=== PATIENT | male | born 1950 | race Caucasian/White ===

== ENCOUNTER 2023-05-05 09:39 | Outpatient (AMB) | payer BC, MEDICARE, SELFPAY ==
[2023-05-05 09:42] VITALS: BP 120/78; PULSE 73; O2SAT 96; BMI 32.1
--- NOTE | 2023-05-05 09:42 | A.OFFPC_ITS ---
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 Patient has psoriasis, would like a refill of Skyrizi Allergies No Known Allergies Allergy (Verified 05/05/23 09:49) Medication List - Last Reconciled 05/05/23 by Maurice Dodson MD cholecalciferol (vitamin D3) 125 mcg PO DAILY lisinopril 10 mg PO DAILY gg-na-lxxfk-lutein-herbal 293 120 mcg-150 mcg -50 mg (Alive Men's 50 Plus Multivitamin) tabs PO risankizumab-rzaa (Skyrizi) 150 mg subcut Q12W rosuvastatin 20 mg PO DAILY tamsulosin 0.4 mg PO DAILY terbinafine HCl 250 mg PO DAILY Tobacco use date assessed: 05/05/23 Fall risk assessment: No Falls in past year Last assessed Fall Risk: 05/05/23 Dental Screening Dental Screen Date: 05/05/23 Did you have a dental visit in the last 12 months?: Yes Did you have a dental problem in the last 6 months where you did not have access to dental care?: No Was dental information given to patient?: Patient has dentist HPI HEALTHCARE FACILITY ADMINISTRATOR/ Medications HPI Details New patient Prior PCP:? Dr Levon Rodriguez in [place] Last office visit/CPE: May Acute issue(s): PMHx: HTN, HLD, Psoriasis, urinary hesitancy SurgHx: vasectomy FHx: Dad: Colon CA. Mom: DVT age 97. SocHx: Nonsmoker, EtOH Occassional 1 per week. No drugs Colonoscopy 3 yrs ago and had polyps. f/u in 5 yrs PFSH Medical History (Updated 05/05/23 @ 10:49 by Maurice Dodson MD) Psoriasis Family History (Updated 05/05/23 @ 10:11 by Gisela Hinton CMA) Mother Blood clotting disorder Social History Housing: Apartment Patient Tobacco Use Status: Former Tobacco user Tobacco use type: Cigar e-Cigarette/Vaping Use: Never Used service: No Current occupational status: retired Cognitive needs: No Hearing needs: No Vision needs: Yes (Prescription glasses) Questionnaire PHQ-9 Over the last 2 weeks, how often have you been bothered by any of the following problems? 1. Little interest or pleasure in doing things: not at all 2. Feeling down, depressed, or hopeless: not at all 3. Trouble falling or staying asleep, or sleeping too much: several days 4. Feeling tired or having little energy: several days 5. Poor appetite or overeating: not at all 6. Feeling bad about yourself - or that you are a failure or have let yourself or your family down: not at all 7. Trouble concentrating on things, such as reading the newspaper or watching television: not at all 8. Moving or speaking so slowly that other people could have noticed. Or the opposite - being so fidgety or restless that you have been moving around a lot more than usual: not at all 9. Thoughts that you would be better off or of hurting yourself in some way: not at all Total score: 2 Source: Developed by Drs. Dennis Shane, Natalia Mcelroy, Cecil Phillips and colleagues, with an educational marley from [employer]. Thrive Questionnaire I am a: Patient What is your living situation today?: I have a steady place to live Within the past 12 months, did the food you bought not last and you didn't have the money to get more?: Never true Within the past 12 months, did you worry whether your food would run out before you got money to buy more?: Never true Do you have trouble paying for medicines?: No Do you have trouble getting transportation to medical appointments?: No Do you have trouble paying your heating and electricity bill?: No Do you have trouble taking care of your child, family member or friend?: No Do you have trouble with day-to-day activities such as bathing, preparing meals, shopping, managing finances, etc.?: No Are you currently unemployed and looking for a job?: No Are you interested in more education?: No AUDIT C Alcohol Use Questionnaire (AUDIT-C) 1. How often do you have a drink containing alcohol?: Monthly or less 2. How many drinks containing alcohol do you have on a typical day when you are drinking?: 1 or 2 3. How often do you have six or more drinks on one occasion?: Never Total Score: 1 IAIN-7 AMB Questionnaire IAIN-7 Feeling nervous, anxious, or on edge: 1 = Several days Not being able to stop or control worryin = Not at all Worrying too much about different things: 1 = Several days Trouble relaxin = Not at all Being so restless that it is hard to sit still: 0 = Not at all Becoming easily annoyed or irritable: 0 = Not at all Feeling afraid as if something awful might happen: 0 = Not at all Total IAIN-7 score (0-4 normal; 5-9 mild; 10-14 moderate; 15-21 severe): 2 Source: Developed by Drs. Dennis Shane, Natalia Mcelroy, Cecil Phillips and colleagues, with an educational marley from [employer]. Physical exam (Primary Care) Vital Signs: Last Vital Signs Pulse 73 05/05/23 09:42 BP 120/78 05/05/23 09:42 Pulse Ox 96 05/05/23 09:42 BMI result Body Mass Index 32.1 Tobacco/Smoking Status: Tobacco use Status Tobacco use date assessed 05/05/23 05/05/23 10:13 Patient Tobacco Use Status Former Tobacco user 05/05/23 10:13 Tobacco use type Cigar 05/05/23 10:13 e-Cigarette/Vaping Use Never Used 05/05/23 10:13 PHQ-9: PHQ-9 Score PHQ-9: Total score 2 05/05/23 10:24 Assessment and Plan Assessment & Plan (1) Essential hypertension: Code(s): I10 - Essential (primary) hypertension Plan: Blood pressure is controlled. Goal is less than 140/90 Continue current medications (2) Hyperlipidemia: Code(s): E78.5 - Hyperlipidemia, unspecified Plan: Lipids in May look well controlled except mildly low HDL He just started rosuvastatin more recently. Check labs Encouraged exercise (3) Psoriasis with arthropathy: Code(s): L40.50 - Arthropathic psoriasis, unspecified Plan: History of psoriasis and has been on Skyrisi. He noticed that when he began this medication, that joint pain disappeared as well Refilled his medication If problems arise, will refer to Rheumatology (4) Elevated PSA: Code(s): R97.20 - Elevated prostate specific antigen [PSA] Plan: PSA was 4.4 in December Repeating PSA level. If still elevated, will refer to Urology (5) Laboratory tests ordered as part of a complete physical exam (CPE): Code(s): Z00.00 - Encounter for general adult medical examination without abnormal findings Plan: Check labs Orders: Orders Complete Blood Count Auto Diff Today Z00.00 - Encounter for general adult medical examination without abnormal findings Lipid Panel Today Z00.00 - Encounter for general adult medical examination without abnormal findings TSH reflex Free T4 Today Z00.00 - Encounter for general adult medical examination without abnormal findings UA and rflx microscopic Today Z00.00 - Encounter for general adult medical examination without abnormal findings Vitamin D 25-OH Total Today E55.9 - Vitamin D deficiency, unspecified Comprehensive [place]. Panel Fast Today Z00.00 - Encounter for general adult medical examination without abnormal findings Microalbumin, Random (w Creat) Today I10 - Essential (primary) hypertension Prostate Specific Antigen Scr Today Z12.5 - Encounter for screening for malignant neoplasm of prostate Medications: New risankizumab-rzaa (Skyrizi) 150 mg subcut Q12W 1 mL 2RF 90 days Coding Level of Care Code New Pt Level 3 (38352) Diagnoses Essential hypertension I10 Hyperlipidemia E78.5 Psoriasis with arthropathy L40.50 Elevated PSA R97.20 Laboratory tests ordered as part of a complete physical exam (CPE) Z00.00
== END 2023-05-05 10:53 | disposition home or self-care (01) ==
PROVIDERS: PCP Family Medicine; Visit Provider Family Medicine
DX: I10 Essential (primary) hypertension (principal); E78.5 Hyperlipidemia, unspecified; L40.50 Arthropathic psoriasis, unspecified; R97.20 Elevated prostate specific antigen [PSA]; Z00.00 Encounter for general adult medical examination without abnormal findings
CPT/HCPCS: 99203

== ENCOUNTER 2023-06-10 08:53 | Outpatient (REF) | payer BC, MEDICARE, SELFPAY ==
[2023-06-10 11:24] LABS: Appearance Urine Clear; Color Urine Dark Yellow; Glucose Urine UA Negative (Negative); Leukocyte Esterase Urine Negative (Negative); Nitrite Urine Negative (Negative); Urine Blood Negative (Negative); Urine Ketones Negative (Negative); Urine Protein Negative (Neg-Trace)
[2023-06-10 11:30] LABS: MANUAL DIFF FLAG NO
[2023-06-10 11:41] LABS: Basophils Absolute Auto 0.1 X10*3/uL (0.0-0.2); Basophils Percent Auto 0.6 % (0-2); Eosinophils Absolute Auto 0.6 X10*3/uL (0.0-0.4); Eosinophils Percent Auto 6.4 % (0-4); Hematocrit 47.1 % (42.0-52.0); Hemoglobin 15.5 g/dl (14.0-18.0); Imm Gran Abs Auto 0.03 X10*3/uL (0.00-0.03); Imm Gran Pct Auto 0.3 % (0.0-0.4); Lymphocytes Absolute Auto 2.4 X10*3/uL (1.2-4.9); Lymphocytes Percent Auto 23.7 % (20-40); Mean Corpuscular HGB Conc 32.9 g/dl (31.0-36.0); Mean Corpuscular Hemoglobin 29.4 pg (27.0-33.0); Mean Corpuscular Volume 89.4 fL (80.0-98.0); Mean Platelet Volume 10.8 fL (9.4-12.4); Monocytes Absolute Auto 0.7 X10*3/uL (0.1-1.2); Monocytes Percent Auto 6.7 % (2-11); Neutrophils Absolute Auto 6.2 x10*3/uL (2.0-8.3); Neutrophils Percent Auto 62.3 % (45-73); Platelet Count 253 X10*3/uL (160-400); Red Blood Count 5.27 X10*6/uL (4.60-5.80); Red Cell Distribution Width 12.2 % (11.0-16.0)
[2023-06-10 12:11] LABS: Alanine Aminotransferase 17 U/L (0-40); Albumin Level 4.2 g/dL (3.5-5.0); Alkaline Phosphatase 27 U/L (39-117); Anion Gap 13 (12-20); Aspartate Amino Transferase 19 U/L (5-37); Bilirubin Total 0.5 mg/dL (0.0-1.0); Blood Urea Nitrogen 12 mg/dL (9-16); Calcium 9.7 mg/dL (8.4-10.2); Carbon Dioxide 27 mmol/L (22-29); Chloride 104 mmol/L (96-108); Cholesterol 113 mg/dL (<200); Estimated Glomerular Filt Rate > 60; Glucose Fasting 114 mg/dL (60-99); HDL Cholesterol 39 mg/dL (>40); LDL Cholesterol Calculated 46 mg/dL (<100); Sodium 140 mmol/L (135-145); Triglycerides 142 mg/dL (<150)
[2023-06-10 12:18] LABS: Prostate Specific Antigen Scr 3.57 ng/mL (<0.05-4.0)
[2023-06-10 12:29] LABS: TSH reflex Free T4 1.04 uIU/mL (0.32-4.0); Vitamin D 25-OH Total 103.1 ng/mL (>30)
[2023-06-10 12:34] LABS: Creatinine Urine 200.88 mg/dL; Microalbum/Creatinine Ratio Ur 6.4 ug/mg cr (<30)
== END 2023-06-10 08:54 | disposition home or self-care (01) ==
LOC: HO.WFDLDS 08:53
PROVIDERS: Visit Provider Family Medicine
DX: Z00.00 Encounter for general adult medical examination without abnormal findings (principal); Z12.5 Encounter for screening for malignant neoplasm of prostate; E55.9 Vitamin D deficiency, unspecified; I10 Essential (primary) hypertension
CPT/HCPCS: 36415; 80053; 80061; 81003; 82043; 82306; 82570; 84153; 84443; 85025

== ENCOUNTER 2023-06-24 10:44 | Outpatient (AMB) | payer BC, MEDICARE, SELFPAY ==
[2023-06-24 10:52] VITALS: BP 128/74; PULSE 72; O2SAT 96; BMI 32.5
--- NOTE | 2023-06-24 10:52 | MHC.PC.OV ---
Vital Signs 06/24/23 10:52 Height 5 ft 8 in Weight 214 lb BMI 32.5 BP 128/74 Blood Pressure Location Lt brachial Position Sitting Pulse 72 Pulse Source Pulse Oximeter Pulse Oximetry (%) 96 Oxygen Delivery Method Room Air Intake Visit Reasons: Extended exam with f/u labs and health maint. Intake Note: Patient is here for extended exam, with follow up labs and health maintenance. Allergies No Known Allergies Allergy (Verified 06/24/23 10:55) Tobacco use date assessed: 06/24/23 Fall risk assessment: No Falls in past year Last assessed Fall Risk: 06/24/23 HPI Extended exam with f/u labs and health maint. HPI Details 72 y/o male presents for a CPE with f/u labs and health maintenance. Labs were drawn 06/10/23. Reviewed labs with pt. Elevated fasting glucose of 114. Pt notes he has a hx of pre-diabetes and had been on metformin before. Triglycerides 142. TC 113. LDL 46. HDL low at 39. He is on rosuvastatin 20mg daily. COUNT INCLUDES [facility] Medical History (Updated 06/24/23 @ 12:06 by Yadiel Marques) Psoriasis Family History (Updated 05/05/23 @ 10:11 by Gisela Hinton [facility]) Mother Blood clotting disorder Social History Housing: Apartment Patient Tobacco Use Status: Former Tobacco user Tobacco use type: Cigar e-Cigarette/Vaping Use: Never Used service: No Current occupational status: retired Cognitive needs: No Hearing needs: No Vision needs: Yes (Prescription glasses) Review of Systems Const Denies chills, Denies fatigue, Denies fever(s), Denies headache(s) and Denies weakness Eyes Denies change in vision ENT Denies dizziness, Denies headache(s), Denies hearing loss, Denies nasal congestion, Denies sinus pain, Denies sinus pressure and Denies sore throat Card Denies chest pain, Denies lightheadedness, Denies dyspnea and Denies other (palpitations) Resp Denies cough, Denies dyspnea and Denies wheezing GI Denies abdominal pain, Denies melena, Denies hematochezia, Denies change in bowel habits, Denies dyspepsia and Denies nausea Denies hematuria and Denies dysuria Musc Denies abnormal gait, Denies myalgias, Denies arthralgias, Denies numbness and Denies tingling Skin/Breast Denies rash, Denies unusual bruising and Denies wounds Neuro Denies abnormal gait, Denies dizziness, Denies headache(s), Denies memory loss, Denies numbness, Denies Sensory deficit (Neuro), Denies tingling and Denies weakness Psych Denies anxiety, Denies depression and Denies memory loss Endo Denies cold intolerance, Denies fatigue, Denies heat intolerance, Denies polydipsia and Denies polyuria Eric/Lymph Denies easy bleeding and Denies easy bruising Aller/Immun Denies wheezing Physical exam (Primary Care) Vital Signs: Last Vital Signs Pulse 72 06/24/23 10:52 BP 128/74 06/24/23 10:52 Pulse Ox 96 06/24/23 10:52 Oxygen Delivery Method Room Air 06/24/23 10:52 BMI result Body Mass Index 32.5 Tobacco/Smoking Status: Tobacco use Status Tobacco use date assessed 06/24/23 06/24/23 10:56 Patient Tobacco Use Status Former Tobacco user 06/24/23 10:56 Tobacco use type Cigar 06/24/23 10:56 e-Cigarette/Vaping Use Never Used 06/24/23 10:56 Const General: no acute distress, well developed, alert and awake Nutritional Appearance: well nourished Orientation/consciousness: patient oriented x3 HENMT Head: Yes normocephalic and Yes atraumatic Ears: hearing grossly normal bilaterally and TM's normal bilaterally General nose exam: Normal external nose present and Normal nares present Mouth: Normal oral and palatal mucosa present and moist mucous membranes Teeth and gingiva: dentition normal Throat: Yes posterior oropharynx normal Eyes General: appearance normal, both eyes and all related structures Pupils: Equal, round and reactive pupils present and Pupil accommodation reflex normal EOM: EOMs intact bilaterally Neck Neck: Yes normal visual inspection, Yes no lymphadenopathy and Yes trachea midline Thyroid: Thyroid normal Carotids: no bruits Lymphatic: no lymphadenopathy noted Chest Chest palpation & inspection: normal inspection of the chest Resp Effort & Inspection: normal respiratory effort Auscultation: clear to auscultation bilaterally Cardio Rate: regular rate Rhythm: regular rhythm Heart sounds: S1 normal heart sound present, S2 normal heart sound present, no gallops, no murmurs and no rubs Bruits: no abdominal aortic bruits and no carotid bruits GI Palpation (GI): No Abdominal aortic bruit present, Soft to palpation, nontender, No hepatosplenomegaly present and No Rebound tenderness present Auscultation: normal bowel sounds General: Yes no CVA tenderness Back/Spine/Pelvis Back: no CVA tenderness Cervical Spine: cervical ROM normal and No Cervical spine tenderness Thoracic/Lumbar Spine: thoraco-lumbar ROM normal, No pain with thoraco-lumbar ROM, No thoracic spinal tenderness and No lumbar spinal tenderness Skin Lesions: no lesions Rashes: no rashes Trauma: no lacerations or abrasions Wounds: no wounds Nails: normal Neuro General: patient oriented x3 Cranial nerves: Yes Equal, round and reactive pupils present Cognition (Neuro): normal cognition Gait exam (Neuro): Normal gait present Motor exam (neuro): 5/5 motor strength present throughout Sensory Exam: No Sensory deficit (Neuro) Deep tendon reflexes (DTR's): Right patellar reflex intensity grade: 2+ and Left patellar reflex intensity grade: 2+ Extrem General: Yes normal to inspection and No edema Psych Appearance: grossly normal Affect: normal affect Attitude: cooperative Thought process: Normal thought process present Assessment and Plan Assessment & Plan (1) Adult general medical exam: Code(s): Z00.00 - Encounter for general adult medical examination without abnormal findings Plan: 72-year-old?male?presents?for?complete?physical?exam Encouraged?healthy?diet?with?active?lifestyle?and?plenty?of?exercise (2) Hyperlipidemia: Code(s): E78.5 - Hyperlipidemia, unspecified Plan: Lipids?controlled?with?rosuvastatin. Low?HDL?and?I?encouraged?exercise (3) Essential hypertension: Code(s): I10 - Essential (primary) hypertension Plan: Blood?pressure?128/74 Goal?less?than?140/90 Continue?current?medications (4) Diabetes: Code(s): E11.9 - Type 2 diabetes mellitus without complications Plan: Check?A1c (5) Screening for prostate cancer: Code(s): Z12.5 - Encounter for screening for malignant neoplasm of prostate Plan: PSA?was?within?normal?limit Orders: Orders Hemoglobin A1c Today E11.9 - Type 2 diabetes mellitus without complications, R73.01 - Impaired fasting glucose Comprehensive [place]. Panel Fast Today E11.9 - Type 2 diabetes mellitus without complications, Z00.00 - Encounter for general adult medical examination without abnormal findings Microalbumin, Random (w Creat) Today E11.9 - Type 2 diabetes mellitus without complications, I10 - Essential (primary) hypertension Lipid Panel Today E78.5 - Hyperlipidemia, unspecified, Z00.00 - Encounter for general adult medical examination without abnormal findings Medications: New metformin 1,000 mg PO DAILY 90 tabs 3RF 90 days Coding Level of Care Code Est Pt Level 4 (72078) Diagnoses Adult general medical exam Z00.00 Hyperlipidemia E78.5 Essential hypertension I10 Diabetes E11.9 Screening for prostate cancer Z12.5
== END 2023-06-24 12:09 | disposition home or self-care (01) ==
PROVIDERS: PCP Family Medicine; Visit Provider Family Medicine
DX: Z00.00 Encounter for general adult medical examination without abnormal findings (principal); E78.5 Hyperlipidemia, unspecified; I10 Essential (primary) hypertension; E11.9 Type 2 diabetes mellitus without complications; Z12.5 Encounter for screening for malignant neoplasm of prostate
CPT/HCPCS: 99214

== ENCOUNTER 2023-08-02 09:12 | Outpatient (REF) | payer BC, MEDICARE, SELFPAY ==
[2023-08-02 11:37] LABS: Estimated Average Glucose 120 mg/dL; Hemoglobin A1c % 5.8 % (<6.0)
[2023-08-02 11:49] LABS: Alanine Aminotransferase 17 U/L (0-40); Albumin Level 4.3 g/dL (3.5-5.0); Alkaline Phosphatase 29 U/L (39-117); Anion Gap 15 (12-20); Aspartate Amino Transferase 18 U/L (5-37); Bilirubin Total 0.5 mg/dL (0.0-1.0); Blood Urea Nitrogen 10 mg/dL (9-16); Calcium 9.7 mg/dL (8.4-10.2); Carbon Dioxide 27 mmol/L (22-29); Chloride 105 mmol/L (96-108); Cholesterol 123 mg/dL (<200); Estimated Glomerular Filt Rate > 60; Glucose Fasting 123 mg/dL (60-99); HDL Cholesterol 46 mg/dL (>40); LDL Cholesterol Calculated 51 mg/dL (<100); Potassium 4.3 mmol/L (3.3-5.1); Sodium 143 mmol/L (135-145); Total Protein 7.2 g/dL (6.5-8.0); Triglycerides 130 mg/dL (<150)
[2023-08-02 12:15] LABS: Creatinine Urine 188.05 mg/dL; Microalbum/Creatinine Ratio Ur 7.4 ug/mg cr (<30)
== END 2023-08-02 09:13 | disposition home or self-care (01) ==
LOC: HO.WFDLDS 09:12
PROVIDERS: Visit Provider Family Medicine
DX: Z00.00 Encounter for general adult medical examination without abnormal findings (principal); I10 Essential (primary) hypertension; E78.5 Hyperlipidemia, unspecified; E11.9 Type 2 diabetes mellitus without complications
CPT/HCPCS: 36415; 80053; 80061; 82043; 82570; 83036

== ENCOUNTER 2023-08-17 16:36 | Outpatient (AMB) | payer BC, MEDICARE, SELFPAY ==
--- NOTE | 2023-08-17 16:27 | MHC.PC.OV ---
Intake Visit Reasons: f/u elevated fasting glucose Intake Note: Patient is following up on elevated fasting glucose. He wants to talk about the Metformin, he feels dizzy when taking it and some diarrhea when taking it. Allergies No Known Allergies Allergy (Verified 08/17/23 16:30) Tobacco use date assessed: 06/24/23 Fall risk assessment: No Falls in past year Last assessed Fall Risk: 08/17/23 HPI f/u elevated fasting glucose HPI Details 73 y/o male presents to review A1c and fasting blood sugar. Pt revealed last office visit he had been on metformin which he had forgotten to mention. Labs were drawn 08/02/23. Reviewed labs with pt. Elevated fasting glucose of 123 and A1c 5.8%. Pt reports dizziness/diarrhea on metformin 1000mg daily. Triglycerides 130. TC 123. LDL 51. HDL 46. He is on rosuvastatin 20mg daily. PFSH Medical History Psoriasis Family History Mother Blood clotting disorder Social History Housing: Apartment Patient Tobacco Use Status: Former Tobacco user Tobacco use type: Cigar e-Cigarette/Vaping Use: Never Used service: No Current occupational status: retired Cognitive needs: No Hearing needs: No Vision needs: Yes (Prescription glasses) Review of Systems Const Denies chills, Denies fatigue, Denies fever(s), Denies headache(s) and Denies weakness ENT Denies dizziness and Denies headache(s) Card Denies dyspnea Resp Denies cough, Denies dyspnea, Denies wheezing and Denies other (shortness of breath) Musc Denies numbness and Denies tingling Neuro Denies dizziness, Denies headache(s), Denies numbness, Denies tingling and Denies weakness Psych Denies anxiety and Denies depression Endo Denies fatigue Aller/Immun Denies wheezing Physical exam (Primary Care) Tobacco/Smoking Status: Tobacco use Status Tobacco use date assessed 06/24/23 08/17/23 16:35 Patient Tobacco Use Status Former Tobacco user 08/17/23 16:35 Tobacco use type Cigar 08/17/23 16:35 e-Cigarette/Vaping Use Never Used 08/17/23 16:35 Telehealth Telehealth Location of provider rendering services: practice address Location of patient: address on file Patient Identification confirmed using: Name, : Yes Telehealth method: voice only Patient verbally consented to treatment: Yes Patient verbally consented to billing insurance company: Yes Patient informed of any privacy concerns related to visit: No Minutes spent on Phone/Video with Pt.: 6 Assessment and Plan Assessment & Plan (1) Diabetes: Code(s): E11.9 - Type 2 diabetes mellitus without complications Plan: Patient's?A1c?is?5.8%?which?is?good?control.??Goal?is?less?than?7.0% However,?patient?is?getting?some?adverse?effects?from?metformin?and?he?has?on?a?fairly?high?dose. He?would?like?to?try?Trulicity. Will?have?him?reduce?metformin?to?500?mg?daily?and?start?Trulicity. (2) Hyperlipidemia: Code(s): E78.5 - Hyperlipidemia, unspecified Plan: Lipids?are?improved?and?at?goal. Continue?rosuvastatin Medications: New dulaglutide (Trulicity) 0.75 mg (0.5 mL) subcut QWEEK 2 mL 2RF 28 days Changed From metformin 1,000 mg PO DAILY 90 days 90 tabs 3RF To metformin 500 mg (1/2 x 1,000 mg) PO DAILY 45 tabs 3RF 90 days Coding Level of Care Code Tele Est Pt Level 2 (46925) Diagnoses Diabetes E11.9 Hyperlipidemia E78.5
== END 2023-08-17 16:45 | disposition home or self-care (01) ==
LOC: HO.HMGFM 16:36
PROVIDERS: PCP Family Medicine; Visit Provider Family Medicine
DX: E11.9 Type 2 diabetes mellitus without complications (principal); E78.5 Hyperlipidemia, unspecified
CPT/HCPCS: 99441

== ENCOUNTER 2023-11-21 08:15 | Outpatient (AMB) | payer BC, MEDICARE, SELFPAY ==
--- NOTE | 2023-11-21 08:18 | MHC.PC.OV ---
Vital Signs 11/21/23 08:19 Height 5 ft 8 in Weight 220 lb BMI 33.4 BP 100/58 L Blood Pressure Location Rt brachial Position Sitting Respiration 12 Pulse 72 Pulse Source Pulse Oximeter Pulse Oximetry (%) 99 Oxygen Delivery Method Room Air Intake Visit Reasons: f/u diabetes and HTN - see comment Intake Note: Patient is here to follow up for diabetic care and hypertension. Patient reports he has no side effects from the trulicity. 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 Accompanied by: Self / Same As Patient Allergies No Known Allergies Allergy (Verified 11/21/23 08:28) Medication List - Last Reconciled 11/21/23 by Maurice Dodson MD dulaglutide (Trulicity) 0.75 mg (0.5 mL) subcut QWEEK 28 days lisinopril 10 mg PO DAILY 90 days metformin 500 mg (1/2 x 1,000 mg) PO DAILY 90 days fx-vz-tlrmb-lutein-herbal 293 120 mcg-150 mcg -50 mg (Alive Men's 50 Plus Multivitamin) tabs PO rosuvastatin 20 mg PO DAILY 90 days tamsulosin 0.4 mg PO DAILY 90 days Tobacco use date assessed: 06/24/23 Dental Screening Dental Screen Date: 05/05/23 HPI f/u diabetes and HTN - see comment HPI Details 73 y/o male presents to f/u diabetes and hypertension. A1c today 11/21/23 6.4%. He is tolerating his medication regimen well. He is on Trulicity 0.75mg, metformin 500mg daily. [facility] Medical History Psoriasis Surgical History History of vasectomy Family History Mother Blood clotting disorder Social History (Updated 11/21/23 @ 08:40 by Christina Lock CMA) Household Members: None Housing: Apartment Are you a primary administrator health care facility to a significant other at home: No Do you presently have visiting nurse or other home services: No 75 years or older and lives alone: No Alcohol intake: current Alcohol intake frequency: holidays/special occasions only Patient Tobacco Use Status: Former Tobacco user Tobacco use type: Cigar e-Cigarette/Vaping Use: Never Used service: No Current occupational status: retired Sexual orientation: Unable to collect Gender identity: Unable to collect Cognitive needs: No Hearing needs: No Vision needs: Yes (Prescription glasses) Questionnaire PHQ-9 Over the last 2 weeks, how often have you been bothered by any of the following problems? 1. Little interest or pleasure in doing things: not at all 2. Feeling down, depressed, or hopeless: not at all 3. Trouble falling or staying asleep, or sleeping too much: not at all 4. Feeling tired or having little energy: not at all 5. Poor appetite or overeating: not at all 6. Feeling bad about yourself - or that you are a failure or have let yourself or your family down: not at all 7. Trouble concentrating on things, such as reading the newspaper or watching television: not at all 8. Moving or speaking so slowly that other people could have noticed. Or the opposite - being so fidgety or restless that you have been moving around a lot more than usual: not at all 9. Thoughts that you would be better off or of hurting yourself in some way: not at all Total score: 0 Depression Screening Interpretation: Negative Depression Screening Done: Yes 55946 - PHQ-9 Billing: Yes Source: Developed by Drs. Dennis Shane, Natalia Mcelroy, Cecil Phillips and colleagues, with an educational marley from [employer]. Thrive Questionnaire Date Thrive assessed: 11/21/23 I am a: Patient What is your living situation today?: I have a steady place to live Within the past 12 months, did the food you bought not last and you didn't have the money to get more?: Never true Within the past 12 months, did you worry whether your food would run out before you got money to buy more?: Never true Do you have trouble paying for medicines?: No Do you have trouble getting transportation to medical appointments?: No Do you have trouble paying your heating and electricity bill?: No Do you have trouble taking care of your child, family member or friend?: No Do you have trouble with day-to-day activities such as bathing, preparing meals, shopping, managing finances, etc.?: No Are you currently unemployed and looking for a job?: No Are you interested in more education?: No Please select the resources that you would like help with: None Currently or been in a relationship where the following occur: no concerns reported THRIVE Score: 0 AUDIT C Alcohol Use Questionnaire (AUDIT-C) 1. How often do you have a drink containing alcohol?: Monthly or less 2. How many drinks containing alcohol do you have on a typical day when you are drinking?: 1 or 2 3. How often do you have six or more drinks on one occasion?: Never Total Score: 1 IAIN-7 AMB Questionnaire IAIN-7 Date IAIN - 7 assessed: 11/21/23 Feeling nervous, anxious, or on edge: 0 = Not at all Not being able to stop or control worryin = Not at all Worrying too much about different things: 0 = Not at all Trouble relaxin = Not at all Being so restless that it is hard to sit still: 0 = Not at all Becoming easily annoyed or irritable: 0 = Not at all Feeling afraid as if something awful might happen: 0 = Not at all Total IAIN-7 score (0-4 normal; 5-9 mild; 10-14 moderate; 15-21 severe): 0 Source: Developed by Drs. Dennis Shane, Natalia Mcelroy, Cecil Phillips and colleagues, with an educational marley from [employer]. IAIN-7 Assessment Billing IAIN-7 Assessment Tool: IAIN-7 Assessment 10349 Review of Systems Const Denies chills, Denies fatigue, Denies fever(s), Denies headache(s) and Denies weakness ENT Denies dizziness and Denies headache(s) Card Denies dyspnea Resp Denies cough, Denies dyspnea, Denies wheezing and Denies other (shortness of breath) Musc Denies numbness and Denies tingling Neuro Denies dizziness, Denies headache(s), Denies numbness, Denies tingling and Denies weakness Psych Denies anxiety and Denies depression Endo Denies fatigue Aller/Immun Denies wheezing Physical exam (Primary Care) Vital Signs: Last Vital Signs Pulse 72 11/21/23 08:19 Resp 12 11/21/23 08:19 BP 100/58 L 11/21/23 08:19 Pulse Ox 99 11/21/23 08:19 Oxygen Delivery Method Room Air 11/21/23 08:19 BMI result Body Mass Index 33.4 Tobacco/Smoking Status: Tobacco use Status Tobacco use date assessed 06/24/23 11/21/23 08:18 Patient Tobacco Use Status Former Tobacco user 11/21/23 08:40 Tobacco use type Cigar 11/21/23 08:40 e-Cigarette/Vaping Use Never Used 11/21/23 08:40 PHQ-9: PHQ-9 Score PHQ-9: Total score 0 11/21/23 08:38 Depression Screening Interpretation: Negative Thrive Assessment: Date of Thrive Assessment Date Thrive assessed 11/21/23 11/21/23 08:38 Currently or been in a relationship where the following occur: no concerns reported Const General: well developed; No acute distress Nutritional Appearance: well nourished Orientation/consciousness: patient oriented x3 HENMT Head: Yes normocephalic and Yes atraumatic Eyes General: appearance normal, both eyes and all related structures Pupils: Equal, round and reactive pupils present EOM: EOMs intact bilaterally Resp Effort & Inspection: normal respiratory effort Neuro General: patient oriented x3 and gait normal Cranial nerves: Yes Equal, round and reactive pupils present Psych Affect: normal affect Results AMB Hemoglobin A1c AMB Hemoglobin A1c 6.4 % Last Edit by Christina Lock CMA on 11/21/23 08:41 Results Reviewed Results Reviewed: Laboratory Last Values Hgb A1c (Clinic) 6.4 % (4.0-6.0) H 11/21/23 08:40 Assessment and Plan Assessment & Plan (1) Diabetes: Code(s): E11.9 - Type 2 diabetes mellitus without complications Plan: Controlled?on metformin?and?Trulicity.??Had?decreased?metformin?and?started?Trulicity?at?his?last?visit.??Patient?is?tolerating?this?regimen?well?and?is?controlled?but?would?like?to?discontinue?Trulicity?and?resume?old?metformin?dose?due?to?cost. He?will?go?back?to?metformin?1000?mg?daily If?he?is?having?any?trouble?with?this?we?can?resume?today's?regimen. Encouraged?him?to?see?an?eye?doctor?any?plans?to?make?an?appointment. (2) Essential hypertension: Code(s): I10 - Essential (primary) hypertension Plan: Blood?pressure?is?controlled.??Goal?is?less?than?140/90 Continue?current?medication Orders: Orders AMB Hemoglobin A1c Today E11.9 - Type 2 diabetes mellitus without complications Medications: Changed From metformin 500 mg (1/2 x 1,000 mg) PO DAILY 90 days 45 tabs 3RF To metformin 1,000 mg PO DAILY 90 days 90 tabs 3RF Discontinued dulaglutide (Trulicity) Discontinued Reason: Patient no longer taking 0.75 mg (0.5 mL) subcut QWEEK 28 days 2 mL 2RF Coding Level of Care Code Est Pt Level 3 (92109) Diagnoses Diabetes E11.9 Essential hypertension I10 Additional Codes IAIN-7 Assessment Billing - IAIN-7 Assessment Tool: IAIN-7 Assessment 45489 ([id number])
[2023-11-21 08:19] VITALS: BP 100/58; PULSE 72; RESP 12; O2SAT 99; BMI 33.4
== END 2023-11-21 08:58 | disposition home or self-care (01) ==
PROVIDERS: PCP Family Medicine; Visit Provider Family Medicine
DX: E11.9 Type 2 diabetes mellitus without complications (principal)
CPT/HCPCS: 83036; 99213

== ENCOUNTER 2024-05-28 08:31 | Outpatient (AMB) | payer BC, MEDICARE, SELFPAY ==
--- NOTE | 2024-05-28 08:47 | A.OFFPC_ITS ---
Vital Signs 05/28/24 08:52 Height 5 ft 8 in Weight 220 lb 6 oz BMI 33.5 BP 110/66 Blood Pressure Location Rt brachial Position Sitting Respiration 16 Pulse 77 Pulse Source Pulse Oximeter Temp 97.9 F Temp Source Oral Pulse Oximetry (%) 94 Oxygen Delivery Method Room Air Intake Visit Reasons: PE/ 3 mo f/u - see comments Intake Note: PE Allergies No Known Allergies Allergy (Verified 05/28/24 08:51) Medication List - Last Reconciled 05/28/24 by Maurice Dodson MD lisinopril 10 mg PO DAILY 90 days metformin 1,000 mg PO DAILY 90 days sv-ma-ehgpu-lutein-herbal 293 120 mcg-150 mcg -50 mg (Alive Men's 50 Plus Multivitamin) tabs PO rosuvastatin 20 mg PO DAILY 90 days tamsulosin 0.4 mg PO DAILY 90 days Tobacco use date assessed: 05/28/24 Fall risk assessment: No Falls in past year Last assessed Fall Risk: 05/28/24 Dental Screening Dental Screen Date: 05/28/24 Did you have a dental visit in the last 12 months?: Yes Did you have a dental problem in the last 6 months where you did not have access to dental care?: No Was dental information given to patient?: Patient has dentist HPI PE/ 3 mo f/u - see comments HPI Details 73 y/o male presents for a CPE with f/u labs and health maintenance. No recent labs to review. Last A1c 04/15 6.2%. He is on metformin 1000mg daily. Blood pressure today 110/66, 77p. He is on lisinopril 10mg daily. Follows his eye doctor regularly. HPI Comments History of Present Illness Details Documentation assistance for Maurice Dodson MD, was provided by Yadiel Marques, Gas Station Cashier on 05/28/2024 at 9:10 AM TORRI. I, Dr. Dodson, have read, observed, and verified documentation. [facility] Medical History Psoriasis Surgical History History of vasectomy Family History Mother Blood clotting disorder Social History (Updated 11/21/23 @ 08:40 by Christina Lock [facility]) Household Members: None Housing: Apartment Are you a primary customer care associate to a significant other at home: No Do you presently have visiting nurse or other home services: No 75 years or older and lives alone: No Alcohol intake: current Alcohol intake frequency: holidays/special occasions only Patient Tobacco Use Status: Current someday Tobacco user Tobacco use type: Cigar e-Cigarette/Vaping Use: Never Used service: No Current occupational status: retired Sexual orientation: Unable to collect Gender identity: Unable to collect Cognitive needs: No Hearing needs: No Vision needs: Yes (Prescription glasses) Questionnaire PHQ-9 Over the last 2 weeks, how often have you been bothered by any of the following problems? 1. Little interest or pleasure in doing things: not at all 2. Feeling down, depressed, or hopeless: several days 3. Trouble falling or staying asleep, or sleeping too much: not at all 4. Feeling tired or having little energy: not at all 5. Poor appetite or overeating: not at all 6. Feeling bad about yourself - or that you are a failure or have let yourself or your family down: not at all 7. Trouble concentrating on things, such as reading the newspaper or watching television: not at all 8. Moving or speaking so slowly that other people could have noticed. Or the opposite - being so fidgety or restless that you have been moving around a lot more than usual: not at all 9. Thoughts that you would be better off or of hurting yourself in some way: not at all Total score: 1 Depression Screening Interpretation: Negative Depression Screening Done: Yes 08419 - PHQ-9 Billing: Yes Source: Developed by Drs. Dennis Shane, Natalia Mcelroy, Cecil Phillips and colleagues, with an educational marley from [employer]. Thrive Questionnaire Date Thrive assessed: 05/28/24 I am a: Patient What is your living situation today?: I have a steady place to live Within the past 12 months, did the food you bought not last and you didn't have the money to get more?: Never true Within the past 12 months, did you worry whether your food would run out before you got money to buy more?: Never true Do you have trouble paying for medicines?: No Do you have trouble getting transportation to medical appointments?: No Do you have trouble paying your heating and electricity bill?: No Do you have trouble taking care of your child, family member or friend?: No Do you have trouble with day-to-day activities such as bathing, preparing meals, shopping, managing finances, etc.?: No Are you currently unemployed and looking for a job?: No Are you interested in more education?: No Please select the resources that you would like help with: None Currently or been in a relationship where the following occur: No concerns reported THRIVE Score: 0 AUDIT C Alcohol Use Questionnaire (AUDIT-C) 1. How often do you have a drink containing alcohol?: Monthly or less 2. How many drinks containing alcohol do you have on a typical day when you are drinking?: 1 or 2 3. How often do you have six or more drinks on one occasion?: Never Total Score: 1 IAIN-7 AMB Questionnaire IAIN-7 Date IAIN - 7 assessed: 05/28/24 Feeling nervous, anxious, or on edge: 0 = Not at all Not being able to stop or control worryin = Not at all Worrying too much about different things: 0 = Not at all Trouble relaxin = Not at all Being so restless that it is hard to sit still: 0 = Not at all Becoming easily annoyed or irritable: 1 = Several days Feeling afraid as if something awful might happen: 0 = Not at all Total IAIN-7 score (0-4 normal; 5-9 mild; 10-14 moderate; 15-21 severe): 1 Source: Developed by Drs. Dennis Shane, Natalia Mcelroy, Cecil Phillips and colleagues, with an educational marley from [employer]. IAIN-7 Assessment Billing IAIN-7 Assessment Tool: IAIN-7 Assessment 19144 Review of Systems Const Denies chills, Denies fatigue, Denies fever(s), Denies headache(s) and Denies weakness Eyes Denies change in vision ENT Denies dizziness, Denies headache(s), Denies hearing loss, Denies nasal congestion, Denies sinus pain, Denies sinus pressure and Denies sore throat Card Denies chest pain, Denies lightheadedness, Denies dyspnea and Denies other (palpitations) Resp Denies cough, Denies dyspnea and Denies wheezing GI Denies abdominal pain, Denies melena, Denies hematochezia, Denies change in bowel habits, Denies dyspepsia and Denies nausea Denies hematuria and Denies dysuria Musc Denies abnormal gait, Denies myalgias, Denies arthralgias, Denies numbness and Denies tingling Skin/Breast Denies rash, Denies unusual bruising and Denies wounds Neuro Denies abnormal gait, Denies dizziness, Denies headache(s), Denies memory loss, Denies numbness, Denies Sensory deficit (Neuro), Denies tingling and Denies weakness Psych Denies anxiety, Denies depression and Denies memory loss Endo Denies cold intolerance, Denies fatigue, Denies heat intolerance, Denies polydipsia and Denies polyuria Eric/Lymph Denies easy bleeding and Denies easy bruising Aller/Immun Denies wheezing Physical exam (Primary Care) Vital Signs: Last Vital Signs Temp 97.9 F 05/28/24 08:52 Pulse 77 05/28/24 08:52 Resp 16 05/28/24 08:52 BP 110/66 05/28/24 08:52 Pulse Ox 94 05/28/24 08:52 Oxygen Delivery Method Room Air 05/28/24 08:52 BMI result Body Mass Index 33.5 Tobacco/Smoking Status: Tobacco use Status Tobacco use date assessed 05/28/24 05/28/24 08:56 Patient Tobacco Use Status Current someday Tobacco 05/28/24 08:56 Tobacco use type Cigar 05/28/24 08:56 e-Cigarette/Vaping Use Never Used 05/28/24 08:56 PHQ-9: PHQ-9 Score PHQ-9: Total score 1 05/28/24 08:56 Depression Screening Interpretation: Negative Thrive Assessment: Date of Thrive Assessment Date Thrive assessed 05/28/24 05/28/24 08:56 Currently or been in a relationship where the following occur: No concerns reported Const General: no acute distress, well developed, alert and awake Nutritional Appearance: well nourished Orientation/consciousness: patient oriented x3 HENMT Head: Yes normocephalic and Yes atraumatic Ears: hearing grossly normal bilaterally and TM's normal bilaterally General nose exam: Normal external nose present and Normal nares present Mouth: Normal oral and palatal mucosa present and moist mucous membranes Teeth and gingiva: dentition normal Throat: Yes posterior oropharynx normal Eyes General: appearance normal, both eyes and all related structures Pupils: Equal, round and reactive pupils present and Pupil accommodation reflex normal EOM: EOMs intact bilaterally Neck Neck: Yes normal visual inspection, Yes no lymphadenopathy and Yes trachea midline Thyroid: Thyroid normal Carotids: no bruits Lymphatic: no lymphadenopathy noted Chest Chest palpation & inspection: normal inspection of the chest Resp Effort & Inspection: normal respiratory effort Auscultation: clear to auscultation bilaterally Cardio Rate: regular rate Rhythm: regular rhythm Heart sounds: S1 normal heart sound present, S2 normal heart sound present, no gallops, no murmurs and no rubs Bruits: no abdominal aortic bruits and no carotid bruits GI Palpation (GI): No Abdominal aortic bruit present, Soft to palpation, nontender, No hepatosplenomegaly present and No Rebound tenderness present Auscultation: normal bowel sounds General: Yes no CVA tenderness Back/Spine/Pelvis Back: no CVA tenderness Cervical Spine: cervical ROM normal and No Cervical spine tenderness Thoracic/Lumbar Spine: thoraco-lumbar ROM normal, No pain with thoraco-lumbar ROM, No thoracic spinal tenderness and No lumbar spinal tenderness Skin Lesions: no lesions Rashes: no rashes Trauma: no lacerations or abrasions Wounds: no wounds Nails: normal Neuro General: patient oriented x3 Cranial nerves: Yes Equal, round and reactive pupils present Cognition (Neuro): normal cognition Gait exam (Neuro): Normal gait present Motor exam (neuro): 5/5 motor strength present throughout Sensory Exam: No Sensory deficit (Neuro) Deep tendon reflexes (DTR's): Right patellar reflex intensity grade: 2+ and Left patellar reflex intensity grade: 2+ Extrem General: Yes normal to inspection and No edema Psych Appearance: grossly normal Affect: normal affect Attitude: cooperative Thought process: Normal thought process present Coding Level of Care Code Est Pt Level 3 (63749) Est Pt Prev Care >65y(98525) Diagnoses Adult general medical exam Z00.00 Diabetes E11.9 Essential hypertension I10 Hyperlipidemia E78.5 Screening for prostate cancer Z12.5 Screening for colon cancer Z12.11 Psoriasis with arthropathy L40.50 Additional Codes IAIN-7 Assessment Billing - IAIN-7 Assessment Tool: IAIN-7 Assessment 97406 ([id number]) Assessment & Plan Assessment & Plan (1) Adult general medical exam: Code(s): Z00.00 - Encounter for general adult medical examination without abnormal findings Category: Medical Plan: 73 y/o male presents for CPE Encouraged?healthy?diet?with?active?lifestyle?and?plenty?of?exercise (2) Diabetes: Code(s): E11.9 - Type 2 diabetes mellitus without complications Category: Medical Plan: Most?recent?A1c?in?April?was?6.2%. See?patient?is?scanned?paperwork?from?today's?date Good?control.??Goal?is?less?than?7.0% Continue?current?medication (3) Essential hypertension: Code(s): I10 - Essential (primary) hypertension Category: Medical Plan: Blood?pressure?is?well?controlled.??Goal?is?less?than?140/90 Continue?current?medication (4) Hyperlipidemia: Code(s): E78.5 - Hyperlipidemia, unspecified Category: Medical Plan: Check?lipids (5) Screening for prostate cancer: Code(s): Z12.5 - Encounter for screening for malignant neoplasm of prostate Category: Medical Plan: Due?for?PSA?testing-ordered (6) Screening for colon cancer: Code(s): Z12.11 - Encounter for screening for malignant neoplasm of colon Category: Medical Plan: Patient?had?recent FIT test. He?denies?any?prior?abnormal?colonoscopies. He?would?like?to?use?Cologuard?testing, beginning?next?year. 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 Checking?TB?and?starting?this?for?him?again?and?referring?him?to?Dermatology. Plan Patient?also?had?NILS?testing which?was?normal?for?bilateral?lower?extremities.??See scanned?documents?from?today's?date. Orders: Orders Prostate Specific Antigen Scr Today Z12.5 - Encounter for screening for malignant neoplasm of prostate TSH reflex Free T4 Today Z00.00 - Encounter for general adult medical examination without abnormal findings Comprehensive [place]. Panel Fast Today Z00.00 - Encounter for general adult medical examination without abnormal findings Complete Blood Count Auto Diff Today Z00.00 - Encounter for general adult medical examination without abnormal findings Lipid Panel Today Z00.00 - Encounter for general adult medical examination without abnormal findings Microalbumin, Random (w Creat) Today I10 - Essential (primary) hypertension UA and rflx microscopic Today Z00.00 - Encounter for general adult medical examination without abnormal findings T Spot TB Today Z11.1 - Encounter for screening for respiratory tuberculosis Referrals Dermatology Referral L40.50 - Arthropathic psoriasis, unspecified Medications: New apremilast (Otezla Starter) 1 ea PO PER PKG DIR 51 ea 0RF L40.50 - Arthropathic psoriasis, unspecified
[2024-05-28 08:52] VITALS: BP 110/66; PULSE 77; RESP 16; TEMP 36.6; O2SAT 94; BMI 33.5
== END 2024-05-28 09:27 | disposition home or self-care (01) ==
PROVIDERS: PCP Family Medicine; Visit Provider Family Medicine
DX: Z00.00 Encounter for general adult medical examination without abnormal findings (principal); L40.50 Arthropathic psoriasis, unspecified; E11.69 Type 2 diabetes mellitus with other specified complication; I10 Essential (primary) hypertension; E78.5 Hyperlipidemia, unspecified; Z12.5 Encounter for screening for malignant neoplasm of prostate; Z12.11 Encounter for screening for malignant neoplasm of colon

== ENCOUNTER → 2024-05-28 08:31 | Outpatient (BNVA) | payer BC, MEDICARE, SELFPAY | PROVIDERS: PCP Family Medicine; Visit Provider Family Medicine | DX: Z00.00 Encounter for general adult medical examination without abnormal findings (principal); E11.9 Type 2 diabetes mellitus without complications; I10 Essential (primary) hypertension; E78.5 Hyperlipidemia, unspecified; L40.50 Arthropathic psoriasis, unspecified; Z79.899 Other long term (current) drug therapy | CPT/HCPCS: 96127 ==

== ENCOUNTER 2024-06-19 08:46 | Outpatient (REF) | payer BC, MEDICARE, SELFPAY ==
[2024-06-19 11:57] LABS: Alanine Aminotransferase 22 U/L (0-40); Albumin Level 4.3 g/dL (3.5-5.0); Alkaline Phosphatase 29 U/L (39-117); Aspartate Amino Transferase 27 U/L (5-37); Bilirubin Direct 0.2 mg/dL (0.0-0.5); Bilirubin Total 0.5 mg/dL (0.0-1.0); Cholesterol 115 mg/dL (<200); HDL Cholesterol 45 mg/dL (>40); LDL Cholesterol Calculated 45 mg/dL (<100); Total Protein 6.9 g/dL (6.5-8.0); Triglycerides 125 mg/dL (<150)
[2024-06-19 12:01] LABS: Basophils Absolute Auto 0.1 X10*3/uL (0.0-0.2); Basophils Percent Auto 0.5 % (0-2); Eosinophils Absolute Auto 0.6 X10*3/uL (0.0-0.4); Eosinophils Percent Auto 6.3 % (0-4); Hematocrit 45.3 % (42.0-52.0); Hemoglobin 15.1 g/dl (14.0-18.0); Imm Gran Abs Auto 0.04 X10*3/uL (0.00-0.03); Imm Gran Pct Auto 0.4 % (0.0-0.4); Lymphocytes Percent Auto 19.3 % (20-40); MANUAL DIFF FLAG SCAN; Mean Corpuscular HGB Conc 33.3 g/dl (31.0-36.0); Mean Corpuscular Hemoglobin 29.6 pg (27.0-33.0); Mean Corpuscular Volume 88.8 fL (80.0-98.0); Mean Platelet Volume 10.8 fL (9.4-12.4); Monocytes Absolute Auto 0.6 X10*3/uL (0.1-1.2); Monocytes Percent Auto 5.9 % (2-11); Neutrophils Absolute Auto 6.9 x10*3/uL (2.0-8.3); Neutrophils Percent Auto 67.6 % (45-73); PLT CLUMP 1; Red Cell Distribution Width 12.3 % (11.0-16.0); SCAN SMEAR FLAG 1
[2024-06-19 12:02] LABS: Alanine Aminotransferase 21 U/L (0-40); Albumin Level 4.3 g/dL (3.5-5.0); Alkaline Phosphatase 46 U/L (39-117); Anion Gap 17 (12-20); Aspartate Amino Transferase 28 U/L (5-37); Bilirubin Total 0.5 mg/dL (0.0-1.0); Blood Urea Nitrogen 14 mg/dL (9-16); Calcium 9.7 mg/dL (8.4-10.2); Carbon Dioxide 26 mmol/L (22-29); Chloride 105 mmol/L (96-108); Cholesterol 117 mg/dL (<200); Estimated Glomerular Filt Rate > 60; Glucose Fasting 132 mg/dL (60-99); HDL Cholesterol 45 mg/dL (>40); LDL Cholesterol Calculated 47 mg/dL (<100); Potassium 4.1 mmol/L (3.3-5.1); Sodium 144 mmol/L (135-145); Total Protein 7.1 g/dL (6.5-8.0); Triglycerides 126 mg/dL (<150)
[2024-06-19 12:19] LABS: TSH reflex Free T4 1.49 uIU/mL (0.32-4.0)
[2024-06-19 12:27] LABS: Platelet Count 230 X10*3/uL (160-400); White Blood Count 10.2 X10*3/uL (4.8-10.8)
[2024-06-19 12:28] LABS: SLIDE REVIEW VERIFIED
[2024-06-20 09:10] LABS: HBc Num1 0.07 S/CO (0.00-0.79); HBsAGNum1 0.25 S/CO (0.00-0.99); Hepatitis B Core Antibody Nonreactive (Nonreactive); Hepatitis B Surface Antigen Negative (Negative); ~HepC Num1 0.06 S/CO (0.00-0.79); ~Hepatitis B Surface Antibody NONREACTIVE (Nonreactive); ~Hepatitis C Antibody Nonreactive (Nonreactive)
[2024-06-21 10:52] LABS: LDL Cholesterol Direct 52 mg/dL (<100)
[2024-06-22 05:04] LABS: TS Negative Control Passed; TS Panel A 0; TS Panel B 0; TS Positive Control Passed; TSpotTB Negative (Negative)
[2024-06-24 11:53] LABS: Thyroxine Binding Globulin 17.8 mcg/mL (12.7-25.1)
== END 2024-06-19 08:47 | disposition home or self-care (01) ==
LOC: HO.WFDLDS 08:46
PROVIDERS: Nurse Practitioner Gerontology; Visit Provider Family Medicine
DX: Z00.00 Encounter for general adult medical examination without abnormal findings (principal); Z12.5 Encounter for screening for malignant neoplasm of prostate; L40.0 Psoriasis vulgaris
CPT/HCPCS: 36415; 80053; 80061; 80076; 82248; 83721; 84153; 84442; 84443; 85025; 86481; 86704; 86706; 86803; 87340

== ENCOUNTER 2024-06-28 13:49 | Outpatient (AMB) | payer BC, MEDICARE, SELFPAY ==
--- NOTE | 2024-06-28 13:42 | A.OFFPC_ITS ---
Intake Visit Reasons: F/U Labs Intake Note: f/u labs Allergies No Known Allergies Allergy (Verified 06/28/24 13:42) Tobacco use date assessed: 05/28/24 Dental Screening Dental Screen Date: 05/28/24 HPI F/U Labs HPI Details 73 y/o male presents to review CPE-labs. Also checking T spot. Had started him on Otezla for psoriasis. Had referred him to Dermatology. Labs drawn 06/19/24. Reviewed labs with pt. Fasting glucose of 132. Triglycerides 125. TC 115. LDL direct 52. HDL 45. He is on rosuvastatin 20mg daily. PSA 5.20. Notes he had increased sexual activity before testing. TSH 1.49. HPI Comments History of Present Illness Details Documentation assistance for Maurice Dodson MD, was provided by Yadiel Marques, Trombone Slide Assembler on 06/28/2024 at 4:18 PM EST. I, Dr. Dodson, have read, observed, and verified documentation. PFSH Medical History Psoriasis Surgical History History of vasectomy Family History Mother Blood clotting disorder Social History (Updated 11/21/23 @ 08:40 by Christina Lock CMA) Household Members: None Housing: Apartment Are you a primary intensive care anaesthetist to a significant other at home: No Do you presently have visiting nurse or other home services: No 75 years or older and lives alone: No Alcohol intake: current Alcohol intake frequency: holidays/special occasions only Patient Tobacco Use Status: Current someday Tobacco user Tobacco use type: Cigar e-Cigarette/Vaping Use: Never Used service: No Current occupational status: retired Sexual orientation: Unable to collect Gender identity: Unable to collect Cognitive needs: No Hearing needs: No Vision needs: Yes (Prescription glasses) Questionnaire Thrive Questionnaire Date Thrive assessed: 05/28/24 IAIN-7 AMB Questionnaire IAIN-7 Date IAIN - 7 assessed: 05/28/24 Source: Developed by Drs. Dennis Shane, Natalia McelroyCecil and colleagues, with an educational marley from [employer]. Physical exam (Primary Care) Tobacco/Smoking Status: Tobacco use Status Tobacco use date assessed 05/28/24 06/28/24 13:43 Patient Tobacco Use Status Current someday Tobacco 06/28/24 13:43 Tobacco use type Cigar 06/28/24 13:43 e-Cigarette/Vaping Use Never Used 06/28/24 13:43 Thrive Assessment: Date of Thrive Assessment Date Thrive assessed 05/28/24 06/28/24 13:43 Telehealth Telehealth Telehealth Platform: Telephone Location of provider rendering services: practice address Location of patient: address on file Patient Identification confirmed using: Name, : Yes Telehealth method: voice only Patient verbally consented to treatment: Yes Patient verbally consented to billing insurance company: Yes Patient informed of any privacy concerns related to visit: Yes Minutes spent on Phone/Video with Pt.: 8 Coding Level of Care Code Tele Est Pt Level 2 (51127) Diagnoses Hyperlipidemia E78.5 Diabetes E11.9 Elevated PSA R97.20 Screening for tuberculosis Z11.1 Assessment & Plan Assessment & Plan (1) Hyperlipidemia: Code(s): E78.5 - Hyperlipidemia, unspecified Category: Medical Plan: Patient?is?on?rosuvastatin Lipid?panel?is?all?at?goal Continue?current?medication (2) Diabetes: Code(s): E11.9 - Type 2 diabetes mellitus without complications Category: Medical Plan: Encouraged?diet?low?in?sugars?and?starches Will?follow-up?with?him?in?3?months (3) Elevated PSA: Code(s): R97.20 - Elevated prostate specific antigen [PSA] Category: Medical Plan: Elevated?PSA?level?but?patient?says?he?had increased?sexual?activity?prior?to?testing Will?repeat?testing?prior?to?his?next?visit (4) Screening for tuberculosis: Code(s): Z11.1 - Encounter for screening for respiratory tuberculosis Category: Medical Plan: Patient?has?psoriasis?and?plan?was?to?start?medication?for?this?so?TB?testing?wa s?acquired?and?is?negative Orders: Orders Comprehensive [place]. Panel Fast Today E11.9 - Type 2 diabetes mellitus without complications, Z00.00 - Encounter for general adult medical examination without abnormal findings Hemoglobin A1c Today E11.9 - Type 2 diabetes mellitus without complications, R73.01 - Impaired fasting glucose Prostate Specific Antigen Scr Today R97.20 - Elevated prostate specific antigen [PSA], Z12.5 - Encounter for screening for malignant neoplasm of prostate Microalbumin, Random (w Creat) Today I10 - Essential (primary) hypertension
== END 2024-06-28 17:05 | disposition home or self-care (01) ==
LOC: HO.HMCFM 13:49
PROVIDERS: PCP Family Medicine; Visit Provider Family Medicine
DX: E78.5 Hyperlipidemia, unspecified (principal); E11.9 Type 2 diabetes mellitus without complications; R97.20 Elevated prostate specific antigen [PSA]; Z11.1 Encounter for screening for respiratory tuberculosis

== ENCOUNTER 2024-11-09 08:49 | Outpatient (REF) | payer BC, MEDICARE, SELFPAY ==
[2024-11-09 11:53] LABS: Estimated Average Glucose 128 mg/dL; Hemoglobin A1c % 6.1 % (<6.0); Total Hemoglobin (HGBA1C) 4226.8614 umol/L
[2024-11-09 11:59] LABS: Alanine Aminotransferase 33 U/L (0-40); Albumin Level 4.4 g/dL (3.5-5.0); Alkaline Phosphatase 32 U/L (39-117); Anion Gap 10 (12-20); Aspartate Amino Transferase 29 U/L (5-37); Bilirubin Total 0.5 mg/dL (0.0-1.0); Blood Urea Nitrogen 14 mg/dL (9-16); Calcium 9.8 mg/dL (8.4-10.2); Carbon Dioxide 30 mmol/L (22-29); Chloride 106 mmol/L (96-108); Estimated Glomerular Filt Rate > 60; Glucose Fasting 135 mg/dL (60-99); Potassium 4.1 mmol/L (3.3-5.1); Sodium 142 mmol/L (135-145); Total Protein 7.3 g/dL (6.5-8.0)
[2024-11-09 12:13] LABS: Prostate Specific Antigen Scr 4.53 ng/mL (<0.05-4.0)
[2024-11-09 14:26] LABS: Appearance Urine Clear; Color Urine Dark Yellow; Glucose Urine UA Negative (Negative); Leukocyte Esterase Urine Negative (Negative); Nitrite Urine Negative (Negative); PH 5.5 (5.0-9.0); Urine Blood Negative (Negative); Urine Ketones Trace mg/dL (Negative); Urine Protein Negative (Neg-Trace)
[2024-11-09 14:55] LABS: Creatinine Urine 209.75 mg/dL; Microalbum/Creatinine Ratio Ur 7.1 ug/mg cr (<30)
[2024-11-12 19:29] LABS: TS Negative Control Passed; TS Panel A 0; TS Panel B 0; TS Positive Control Passed; TSpotTB Negative (Negative)
== END 2024-11-09 08:50 | disposition home or self-care (01) ==
LOC: HO.WFDLDS 08:49
PROVIDERS: Visit Provider Family Medicine
DX: Z00.00 Encounter for general adult medical examination without abnormal findings (principal); Z11.1 Encounter for screening for respiratory tuberculosis; E11.9 Type 2 diabetes mellitus without complications; Z12.5 Encounter for screening for malignant neoplasm of prostate; R97.20 Elevated prostate specific antigen [PSA]; I10 Essential (primary) hypertension
CPT/HCPCS: 36415; 80053; 81003; 82043; 82570; 83036; 84153; 86481

== ENCOUNTER 2024-11-15 14:40 | Outpatient (AMB) | payer BC, MEDICARE, SELFPAY ==
--- NOTE | 2024-11-15 15:05 | A.OFFPC_ITS ---
Vital Signs 11/15/24 15:10 Height 5 ft 8 in Weight 226 lb 4 oz BMI 34.4 BP 100/80 Blood Pressure Location Rt brachial Position Sitting Respiration 14 Pulse 90 Pulse Source Pulse Oximeter Temp 98.0 F Temp Source Oral Pulse Oximetry (%) 94 Oxygen Delivery Method Room Air Intake Visit Reasons: F/U Diabetes, Elevated PSA - see comments Intake Note: patient is scheduled for dm and lab work follow up Marine Service Manager Required: No Allergies No Known Allergies Allergy (Verified 11/15/24 15:06) Medication List - Last Reconciled 11/15/24 by Maurice Dodson MD citalopram 20 mg PO DAILY 30 days lisinopril 10 mg PO DAILY 90 days metformin 1,000 mg PO DAILY 90 days gc-ds-wrugw-lutein-herbal 293 120 mcg-150 mcg -50 mg (Alive Men's 50 Plus Multivitamin) tabs PO omeprazole 20 mg PO DAILY 30 days risankizumab-rzaa (Skyrizi) 150 mg subcut Q12W rosuvastatin 20 mg PO DAILY 90 days tamsulosin 0.4 mg PO DAILY 90 days Tobacco use date assessed: 05/28/24 Dental Screening Dental Screen Date: 05/28/24 HPI F/U Diabetes, Elevated PSA - see comments HPI Details 74 y/o male presents to f/u diabetes, el evated PSA. Labs drawn 11/09/24. Reviewed labs with pt. A1c 6.1%. PSA improved from 5.20 to 4.53ng/mL but still elevated. HPI Comments History of Present Illness Details Documentation assistance for Maurice Dodson MD, was provided by Yadiel Marques, Nuclear Weapons Mechanical Specialist on 11/15/2024 at 3:31 PM EST. I, Dr. Dodson, have read, observed, and verified documentation. [facility] Medical History Psoriasis Surgical History History of vasectomy Family History Mother Blood clotting disorder Social History (Updated 11/21/23 @ 08:40 by Christina Lock CMA) Household Members: None Housing: Apartment Are you a primary career development engineer to a significant other at home: No Do you presently have visiting nurse or other home services: No 75 years or older and lives alone: No Alcohol intake: current Alcohol intake frequency: holidays/special occasions only Patient Tobacco Use Status: Current someday Tobacco user Tobacco use type: Cigar e-Cigarette/Vaping Use: Never Used service: No Current occupational status: retired Sexual orientation: Unable to collect Gender identity: Unable to collect Cognitive needs: No Hearing needs: No Vision needs: Yes (Prescription glasses) Questionnaire PHQ-9 Over the last 2 weeks, how often have you been bothered by any of the following problems? 1. Little interest or pleasure in doing things: more than half the days 2. Feeling down, depressed, or hopeless: more than half the days 3. Trouble falling or staying asleep, or sleeping too much: more than half the days 4. Feeling tired or having little energy: more than half the days 5. Poor appetite or overeating: more than half the days 6. Feeling bad about yourself - or that you are a failure or have let yourself or your family down: nearly every day 7. Trouble concentrating on things, such as reading the newspaper or watching television: more than half the days 8. Moving or speaking so slowly that other people could have noticed. Or the o pposite - being so fidgety or restless that you have been moving around a lot more than usual: not at all 9. Thoughts that you would be better off or of hurting yourself in some way: not at all Total score: 15 Source: Developed by Drs. Dennis Shane, Natalia Mcelroy, Cecil Phillips and colleagues, with an educational marley from [employer]. Thrive Questionnaire Date Thrive assessed: 05/28/24 I am a: Patient What is your living situation today?: I have a steady place to live Within the past 12 months, did the food you bought not last and you didn't have the money to get more?: Never true Within the past 12 months, did you worry whether your food would run out before you got money to buy more?: Never true Do you have trouble paying for medicines?: Yes Do you have trouble getting transportation to medical appointments?: No Do you have trouble paying your heating and electricity bill?: No Do you have trouble taking care of your child, family member or friend?: No Do you have trouble with day-to-day activities such as bathing, preparing meals, shopping, managing finances, etc.?: No Are you currently unemployed and looking for a job?: No Are you interested in more education?: No Please select the resources that you would like help with: Paying for medicine and Utilities Currently or been in a relationship where the following occur: No concerns reported THRIVE Score: 0 AUDIT C Alcohol Use Questionnaire (AUDIT-C) 1. How often do you have a drink containing alcohol?: Monthly or less 2. How many drinks containing alcohol do you have on a typical day when you are drinking?: 1 or 2 3. How often do you have six or more drinks on one occasion?: Never Total Score: 1 IAIN-7 AMB Questionnaire IAIN-7 Date IAIN - 7 assessed: 05/28/24 Feeling nervous, anxious, or on edge: 2 = More than half the days Not being able to stop or control worryin = More than half the days Worrying too much about different things: 2 = More than half the days Trouble relaxin = More than half the days Being so restless that it is hard to sit still: 2 = More than half the days Becoming easily annoyed or irritable: 2 = More than half the days Feeling afraid as if something awful might happen: 2 = More than half the days Total IAIN-7 score (0-4 normal; 5-9 mild; 10-14 moderate; 15-21 severe): 14 Source: Developed by Drs. Dennis Shane, Natalia Mcelroy, Cecil Phillips and colleagues, with an educational marley from [employer]. Review of Systems Const Denies chills, Denies fatigue, Denies fever(s), Denies headache(s) and Denies weakness ENT Denies dizziness and Denies headache(s) Card Denies dyspnea Resp Denies cough, Denies dyspnea, Denies wheezing and Denies other (shortness of breath) Musc Denies numbness and Denies tingling Neuro Denies dizziness, Denies headache(s), Denies numbness, Denies tingling and Denies weakness Psych Denies anxiety and Denies depression Endo Denies fatigue Aller/Immun Denies wheezing Physical exam (Primary Care) Vital Signs: Last Vital Signs Temp 98.0 F 11/15/24 15:10 Pulse 90 11/15/24 15:10 Resp 14 11/15/24 15:10 BP 100/80 11/15/24 15:10 Pulse Ox 94 11/15/24 15:10 Oxygen Delivery Method Room Air 11/15/24 15:10 BMI result Body Mass Index 34.4 Tobacco/Smoking Status: Tobacco use Status Tobacco use date assessed 05/28/24 11/15/24 15:14 Patient Tobacco Use Status Current someday Tobacco 11/15/24 15:14 Tobacco use type Cigar 11/15/24 15:14 e-Cigarette/Vaping Use Never Used 11/15/24 15:14 PHQ-9: PHQ-9 Score PHQ-9: Total score 15 11/15/24 15:31 Thrive Assessment: Date of Thrive Assessment Date Thrive assessed 05/28/24 11/15/24 15:14 Currently or been in a relationship where the following occur: No concerns reported Const General: well developed; No acute distress Nutritional Appearance: well nourished Orientation/consciousness: patient oriented x3 HENMT Head: Yes normocephalic and Yes atraumatic Eyes General: appearance normal, both eyes and all related structures Pupils: Equal, round and reactive pupils present EOM: EOMs intact bilaterally Resp Effort & Inspection: normal respiratory effort Neuro General: patient oriented x3 and gait normal Cranial nerves: Yes Equal, round and reactive pupils present Psych Affect: normal affect Coding Level of Care Code Est Pt Level 4 (39821) Diagnoses Diabetes E11.9 Elevated PSA R97.20 Essential hypertension I10 Depression with anxiety F41.8 Obesity E66.9 GERD (gastroesophageal reflux disease) K21.9 Assessment & Plan Assessment & Plan (1) Diabetes: Code(s): E11.9 - Type 2 diabetes mellitus without complications Category: Medical Plan: A1c?6.1%.??Good?control.??Goal?is?less?than?7.0%. Will?continue?current?medication Patient?is?interested?in?GLP?1?medication?for?weight?loss.??He ?can?check?with?insurance?company?and?we?can?try?this?if?he?is?still?interested, ?at?next?visit (2) Elevated PSA: Code(s): R97.20 - Elevated prostate specific antigen [PSA] Category: Medical Plan: PSA?is?still?elevated Referred?to?urology (3) Essential hypertension: Code(s): I10 - Essential (primary) hypertension Category: Medical Plan: Blood?pressure?is?controlled.??Goal?is?less?than?140/90 Continue?current?medication (4) Depression with anxiety: Code(s): F41.8 - Other specified anxiety disorders Category: Medical Plan: Patient?notes?depression?and?anxiety Start?citalopram 10?mg?daily?in?who?can?titrate?up?to?20?mg?daily?if no?improvement?at?10?mg. (5) Obesity: Code(s): E66.9 - Obesity, unspecified Category: Medical Plan: As?above,?we?can?discuss?a?GLP?1?medication?at?his?next?vis it?if?he?is?still?interested (6) GERD (gastroesophageal reflux disease): Code(s): K21.9 - Gastro-esophageal reflux disease without esophagitis Category: Medical Plan: Start?omeprazole Medications: New omeprazole 20 mg PO DAILY 30 days 30 caps 3RF citalopram 20 mg PO DAILY 30 days 30 tabs 2RF
[2024-11-15 15:10] VITALS: BP 100/80; PULSE 90; RESP 14; TEMP 36.7; O2SAT 94; BMI 34.4
--- OUTSIDE RECORDS SUMMARY | 2024-11-15 16:10 | XMS_ITS | Patient Health Record ---
Author Organization [facility] Address [address] [place] [address] Care Team Providers Care Forming Machine Adjuster Name Role Phone Sinan Brown Unavailable [phone] Allergies No Known Allergies Reason For Referral No Information Medications Medication SIG (Take, Route, Frequency, Duration) Notes Start Date End Date Status Terbinafine HCl 250 MG 1 tablet Orally O nce a day Active Collagen Ultra - as directed Orally Active Rosuvastatin Calcium 20 MG 1 tablet in the evening Orally Once a day for 90 days Active Lisinopril 10 MG 1 tablet Orally Once a day Active metFORMIN HCl 1000 MG 1 tablet with a me al Orally Once a day 10/05/2022 Active Tamsulosin HCl 0.4 MG TAKE 1 CAPSULE BY MOUTH EVERY DAY Orally Once a day for 90 days Active Nadir Multivitamin for Men - as directed Orally Active CoQ-10 30 MG as directed Orally O NCE A DAY Active Brainstrong Memory Support - as directed Orally Active Skyrizi 150 MG/ML as directed Subcutan eous as directed Active Otezla 30 MG 1 tablet Orally Twic e a day Not-Taking Social History Tobacco Use: Social History Observation Description Date Details (start date - stop date) Never Smoker NA - NA Tobacco Use/Smoking Question Answer Notes Are you a nonsmoker Alcohol Screen (Audit-C) Question Answer Notes Did you have a drink containing alcohol in the p ast year? No Points 0 Interpretation Negative Tobacco use other than smoking: Question Answer Notes Are you an other tobacco user? No Problems Problem Type SNOMED Code ICD Code Onset Dates Problem Status W/U Status Risk Notes Problem 248413803 Morbid (severe) obesity due to excess calories (E66.01) Active confirmed BMI over 35 with Comorbidities (Hypertension) Problem Essential hypertension (72360686) Essential (primary) hypertension (I10) Active confirmed On Lisinopril Problem 385356519 Prediabetes (R73.03) Active confirmed Problem Hyperlipidemia (78929905) Hyperlipidemia (E78.5) Active confirmed Will refer to healthy heart Problem 181523805 Psoriatic arthritis (L40.50) Active confirmed From Progress Note 06/23/2021, On Calcipotriene and Otezla Problem Counseling (547800100) Cardiac risk counseling (Z71.89) Active confirmed Problem Chronic sinusitis (45488779) Sinus infection (J32.9) Active confirmed Problem Benign prostatic hypertrophy (157406041) BPH (N40.0) Active confirmed Problem Coronary artery disease (46148485) Coronary artery disease (I25.10) Active confirmed Plan Of Treatment Pending Test Test Name Order Date HIV-1, Quantitative, RNA,real time 12/29 PCP - COA 10/05/2022 PCP - COA 06/23/2021 [place] ECG/EKG 01/08/2022 PHQ9 10/05/2022 Future Test Test Name Order Date U/S Soft Tissue - Extremity 01/05/2022 Insurance Providers Payer Name Payer Address Payer Phone Subscriber Number Group Number Insured Name Patient Relationship to Insured Coverage Start Date Coverage End Date [facility] [address] [address] [place] [phone] [id number] ABELARDO CASANOVA Self - patient is the insured [employer] [place] [address] [address] [place] [phone] [id number] ABELARDO CASANOVA Self - patient is the insured Medical (General) History Medical History History ICD Code COLONOSPY 2 YEARS AGO PFIZER COVID VACCINE VASECTOMY 20 YEARS AGO Surgical History Surgery Date(Month/Year) vasectomy 20 YEARS AGO
== END 2024-11-15 15:43 | disposition home or self-care (01) ==
LOC: HO.HMCFM 14:41
PROVIDERS: PCP Family Medicine; Visit Provider Family Medicine
DX: E11.9 Type 2 diabetes mellitus without complications (principal); R97.20 Elevated prostate specific antigen [PSA]; E66.9 Obesity, unspecified; Z68.34 Body mass index [BMI] 34.0-34.9, adult; I10 Essential (primary) hypertension; F41.8 Other specified anxiety disorders; K21.9 Gastro-esophageal reflux disease without esophagitis

== ENCOUNTER 2025-02-14 08:27 | Outpatient (AMB) | payer MEDICARE, SELFPAY ==
--- OUTSIDE RECORDS SUMMARY | 2025-02-14 08:31 | XMS_ITS | Patient Health Record ---
Author Organization [facility] Address [address] [place] [address] Care Team Providers Care Neonatal Intensive Care Nurse Name Role Phone Sinan Brown Unavailable [phone] Allergies No Known Allergies Reason For Referral No Information Medications Medication SIG (Take, Route, Frequency, Duration) Notes Start Date End Date Status Terbinafine HCl 250 MG 1 tablet Orally O nce a day Active Collagen Ultra - as directed Orally Active Rosuvastatin Calcium 20 MG 1 tablet in the evening Orally Once a day; Duration: 90 days Active Lisinopril 10 MG 1 tablet Orally Once a day Active metFORMIN HCl 1000 MG 1 tablet with a me al Orally Once a day 10/05/2022 Active Tamsulosin HCl 0.4 MG TAKE 1 CAPSULE BY MOUTH EVERY DAY Orally Once a day; Duration: 90 days Active Nadir Multivitamin for Men [...] Problem Status W/U Status Risk Notes Problem Morbid obesity (disorder) (394219952) Morbid (severe) obesity due to excess calories (E66.01) Active confirmed BMI over 35 with Comorbidities (Hypertension) Problem Essential hypertension (88861340) Essential (primary) hypertension (I10) Active confirmed On Lisinopril Problem Prediabetes (736606212) Prediabetes (R73.03) Active confirmed Problem Hyperlipidemia (56742930) Hyperlipidemia (E78.5) Active confirmed Will refer to healthy heart Problem Psoriatic arthritis (713589056) Psoriatic arthritis (L40.50) Active confirmed From Progress Note 06/23/2021, On Calcipotriene and Otezla Problem Counseling (650093927) Cardiac risk counseling (Z71.89) Active confirmed Problem Chronic sinusitis (88458390) Sinus infection (J32.9) Active confirmed Problem Benign prostatic hypertrophy (540518326) BPH (N40.0) Active confirmed Problem Coronary artery disease (57986869) Coronary artery disease (I25.10) Active confirmed Plan Of Treatment Pending Test Test Name Order Date HIV-1, Quantitative, RNA,real time 12/29 PCP - COA 10/05/2022 PCP - COA 06/23/2021 [place] ECG/EKG 01/08/2022 PHQ9 10/05/2022 Future Test Test Name Order Date U/S Soft Tissue - Extremity 01/05/2022 Insurance Providers Payer Name Payer Address Payer Phone Subscriber Number Group Number Insured Name Patient Relationship to Insured Coverage Start Date Coverage End Date [facility] [address] [address] [place] [address] [phone] [id number] ABELARDO CASANOVA Self - patient is the insured [employer] [place] [address] [address] [place] [address] [phone] [id number] ABELARDO CASANOVA Self - patient is the insured Medical (General) History Medical History History ICD Code COLONOSPY 2 YEARS AGO PFIZER COVID VACCINE VASECTOMY 20 YEARS AGO Surgical History Surgery Date(Month/Year) vasectomy 20 YEARS AGO
--- NOTE | 2025-02-14 09:10 | MHC.OFFVIS ---
Intake Visit Reasons: Elevated PSA Intake Note: New patient presents today for initial visit for elevated PSA 06-19-24 PSA: 5.20 11/09 PSA:4.53 Urology Medication:Tamsulosin Blood Thinner:None Antibiotic Allergies:None Allergies No Known Allergies Allergy (Verified 02/14/25 09:11) Medication List - Last Reconciled 02/14/25 by Cristina Del Toro MD citalopram 20 mg PO DAILY 30 days lisinopril 10 mg PO DAILY 90 days metformin 1,000 mg PO DAILY 90 days hd-vq-phctn-lutein-herbal 293 120 mcg-150 mcg -50 mg (Alive Men's 50 Plus Multivitamin) tabs PO omeprazole 20 mg PO DAILY 30 days risankizumab-rzaa (Skyrizi) 150 mg subcut Q12W rosuvastatin 20 mg PO DAILY 90 days tamsulosin 0.4 mg PO DAILY 90 days HPI Comments Details: 02/14/2025 History of Present Illness - The patient is a 74-year-old male presenting with elevated Prostate-Specific Antigen (PSA). - The PSA level was recorded at 4.53 on 11/09/24. - The patient has a history of elevated PSA levels, which previously led to a biopsy approximately seven to eight years ago in [place]. - The patient is currently on tamsulosin for Benign Prostatic Hyperplasia (BPH) and reports improvement in urinary symptoms. - He experiences nocturia, which has decreased since starting tamsulosin,. - The patient states high fluid intake, including diet iced tea and occasional caffeinated beverages, which may contribute to urinary frequency. Results - PSA level: 4.53ng/mL on 11/09/24 - PSA --06-19-24 -- 5.20 ng/mL Discussion Notes I have discussed that elevated PSA may indicate changes in the prostate including benign enlargement, cancer and an inflammatory condition. I have discussed doing a biopsy has risks and that management in early detection of prostate cancer may include active surveillance. We also discussed the impact of fluid intake, particularly caffeinated beverages, on urinary symptoms. Plan ultrasound upper and lower urinary tract with measurement of the prostate.Will consider additional medical therapy with alpha reductase inhibitor such as finasteride pending results. [facility] Medical History Psoriasis Surgical History History of vasectomy Family History Mother Blood clotting disorder Social History Household Members: None Housing: Apartment Are you a primary home health care respiratory therapist to a significant other at home: No Do you presently have visiting nurse or other home services: No 75 years or older and lives alone: No Alcohol intake: current Alcohol intake frequency: holidays/special occasions only Patient Tobacco Use Status: Current someday Tobacco user Tobacco use type: Cigar e-Cigarette/Vaping Use: Never Used service: No Current occupational status: retired Sexual orientation: Unable to collect Gender identity: Unable to collect Cognitive needs: No Hearing needs: No Vision needs: Yes (Prescription glasses) Physical Exam Const General: healthy appearing, no acute distress and well developed Orientation/consciousness: patient oriented x3 HEENT Head: Yes normocephalic and Yes atraumatic Eyes Conjunctivae: conjunctivae normal Neck Neck: Yes normal visual inspection Chest Chest palpation & inspection: normal inspection of the chest Resp Effort & Inspection: normal respiratory effort GI Inspection: Yes normal to inspection Neuro General: patient oriented x3 Psych Appearance: grossly normal Affect: normal affect Results AMB Urinalysis, Automated UA Leukoctes 0 Tania/uL Last Edit by GISELLE Hansen on 02/14/25 11:38 UA Nitrite Negative Last Edit by GISELLE Hansen on 02/14/25 11:38 UA Urobilinogen 17 mg/dL Last Edit by GISELLE Hansen on 02/14/25 11:38 UA Protein 15 mg/dL Last Edit by GISELLE Hansen on 02/14/25 11:38 UA pH 6.0 Last Edit by GISELLE Hansen on 02/14/25 11:38 UA Blood 0 Morgan/uL Last Edit by GISELLE Hansen on 02/14/25 11:38 UA Specific Hart 1.015 Last Edit by GISELLE Hansen on 02/14/25 11:38 UA Ketone Positive Last Edit by GISELLE Hansen on 02/14/25 11:38 UA Bilirubin 0 mg/dL Last Edit by GISELLE Hansen on 02/14/25 11:38 UA Glucose 0 mg/dL Last Edit by GISELLE Hansen on 02/14/25 11:38 Results Reviewed Results Reviewed: Laboratory Last Values Urine pH (Auto) 6.0 02/14/25 11:37 Specific Hart (Auto) 1.015 02/14/25 11:37 Urine Protein (Auto) 15 mg/dL 02/14/25 11:37 Glucose (UA)(Auto) 0 mg/dL 02/14/25 11:37 Urine Ketones (Auto) Positive 02/14/25 11:37 Urine Blood (Auto) 0 Morgan/uL 02/14/25 11:37 Urine Nitrite (Auto) Negative 02/14/25 11:37 Urine Bilirubin (Auto) 0 mg/dL 02/14/25 11:37 Urine Urobilinogen (Auto) 17 mg/dL 02/14/25 11:37 Leukocyte Esterase (Auto) 0 Tania/uL 02/14/25 11:37 Assessment & Plan Assessment & Plan (1) Elevated PSA: Code(s): R97.20 - Elevated prostate specific antigen [PSA] Category: Medical (2) BPH loc w urin obs/LUTS: Code(s): N40.1 - Benign prostatic hyperplasia with lower urinary tract symptoms Category: Medical Plan Ultrasound retroperitoneal Will consider additional medical therapy with alpha reductase inhibitor pending results Orders: Orders AMB Urinalysis Automated Today Z13.9 - Encounter for screening, unspecified US retroperitoneal comp Today N40.1 - Benign prostatic hyperplasia with lower urinary tract symptoms, R97.20 - Elevated prostate specific antigen [PSA] Patient Instructions: The patient had an opportunity to ask questions regarding treatment plan. The patient expressed understanding and agreement with the above treatment plan. The patient is aware they should contact our office by phone for worsening of their current condition or the appearance of new symptoms. Compliance is encouraged with any medications and followup testing that is ordered. It is a privilege to be allowed the opportunity to participate in the urologic care of your patient. If you have any questions or concerns regarding treatment for the above conditions please do not hesitate to contact me. The office telephone contact is [phone]. This note is constructed in part using voice recognition software. While every effort has been made to ensure accuracy direct sales consultant errors may have been included. Yours sincerely, Cristina Del Toro MD Scribe Plan - Not visible on output: Patient was informed and verbally consented to the use of an ambient scribe for clinic note documentation during this visit. Coding Level of Care Code New Pt Level 4 (36948) Diagnoses Elevated PSA R97.20 BPH loc w urin obs/LUTS N40.1
== END 2025-02-14 09:44 | disposition home or self-care (01) ==
LOC: HO.HUSH 08:28
PROVIDERS: PCP Family Medicine; Visit Provider Urology
DX: R97.20 Elevated prostate specific antigen [PSA] (principal); N40.1 Benign prostatic hyperplasia with lower urinary tract symptoms; Z13.9 Encounter for screening, unspecified
CPT/HCPCS: 99204

== ENCOUNTER → 2025-02-14 08:27 | Outpatient (BNVA) | payer MEDICARE, SELFPAY | PROVIDERS: PCP Family Medicine; Visit Provider Urology | DX: R97.20 Elevated prostate specific antigen [PSA] (principal); N40.1 Benign prostatic hyperplasia with lower urinary tract symptoms; R35.1 Nocturia; Z79.899 Other long term (current) drug therapy | CPT/HCPCS: 81003; 99202 ==

== ENCOUNTER 2025-02-19 08:24 | Outpatient (AMB) | payer BC, MEDICARE, SELFPAY ==
--- OUTSIDE RECORDS SUMMARY | 2025-02-19 08:29 | XMS_ITS | Patient Health Record ---
Author Organization [employer] Address [address] [place] [address] Care Team Providers Care Sweat Box Attendant Name Role Phone Sinan Brown Unavailable [phone] Allergies No Known Allergies Reason For Referral [...] Once a day; Duration: 90 days Active Andir Multivitamin for Men - as directed Orally [...] Status Risk Notes Problem Morbid obesity (disorder) (996683573) Morbid (severe) obesity due to excess calories (E66.01) Active confirmed BMI over 35 with Comorbidities (Hypertension) Problem Essential hypertension (41415310) Essential (primary) hypertension (I10) Active confirmed On Lisinopril Problem Prediabetes (590708335) Prediabetes (R73.03) Active confirmed Problem Hyperlipidemia (92413735) Hyperlipidemia (E78.5) Active confirmed Will refer to healthy heart Problem Psoriatic arthritis (294510034) Psoriatic arthritis (L40.50) Active confirmed From Progress Note 06/23/2021, On Calcipotriene and Otezla Problem Counseling (910329122) Cardiac risk counseling (Z71.89) Active confirmed Problem Chronic sinusitis (04884180) Sinus infection (J32.9) Active confirmed Problem Benign prostatic hypertrophy (229805953) BPH (N40.0) Active confirmed Problem Coronary artery disease (51604986) Coronary artery disease (I25.10) Active confirmed Plan [...] Insured Coverage Start Date Coverage End Date [facility] [address] [address] [place] [address] [id number] ABELARDO CASANOVA Self - patient is the insured [employer] [place] [address] [address] [place] [address] [id number] ABELARDO CASANOVA Self - patient is the insured Medical (General) History Medical History History ICD Code COLONOSPY 2 YEARS AGO PFIZER COVID VACCINE VASECTOMY 20 YEARS AGO Surgical History Surgery Date(Month/Year) vasectomy 20 YEARS AGO
--- NOTE | 2025-02-19 08:39 | MHC.PC.OV ---
Vital Signs 02/19/25 08:49 Height 5 ft 8 in Weight 221 lb BMI 33.6 BP 122/78 Blood Pressure Location Rt brachial Position Sitting Respiration 16 Pulse 79 Pulse Source Pulse Oximeter Temp 98.6 F Temp Source Temporal Artery Scan Pulse Oximetry (%) 95 Oxygen Delivery Method Room Air Intake Visit Reasons: f/u diabetes, mood Intake Note: Tesfaye presents in the office today for a follow up to his diabetes and mood. Allergies No Known Allergies Allergy (Verified 02/19/25 08:46) Medication List - Last Reconciled 02/19/25 by Maurice Dodson MD lisinopril 10 mg PO DAILY 90 days metformin 1,000 mg PO DAILY 90 days sc-qf-qudez-lutein-herbal 293 120 mcg-150 mcg -50 mg (Alive Men's 50 Plus Multivitamin) tabs PO omeprazole 20 mg PO DAILY 30 days risankizumab-rzaa (Skyrizi) 150 mg subcut Q12W rosuvastatin 20 mg PO DAILY 90 days tamsulosin 0.4 mg PO DAILY 90 days tirzepatide (Mounjaro) 2.5 mg (0.5 mL) subcut QWEEK 28 days Tobacco use date assessed: 02/19/25 Fall risk assessment: No Falls in past year Last assessed Fall Risk: 02/19/25 Dental Screening Dental Screen Date: 02/19/25 Did you have a dental visit in the last 12 months?: Yes Did you have a dental problem in the last 6 months where you did not have access to dental care?: No Was dental information given to patient?: Patient has dentist HPI f/u diabetes, mood HPI Details Patient presents to follow-up diabetes and hypertension. A1c today is 6.3%. He is tolerating his medications as prescribed Blood pressure is 122/78. He is taking his medication as prescribed. Working on diabetic diet. Walking twice a day with his dog Patient had had issues with depression but he says this has resolved. Patient was referred to Urology for elevated PSA. He has been seen once and a retroperitoneal ultrasound has been ordered. He says this has not been scheduled yet but he is awaiting his. Patient notes that he saw his eye doctor who has diagnosed glaucoma. They have scheduled a iridotomy and need preoperative clearance. See below. [facility] Medical History Psoriasis Surgical History History of vasectomy Family History Mother Blood clotting disorder Social History (Updated 02/19/25 @ 08:48 by Na Youssef MA) Household Members: None Housing: Apartment Are you a primary pediatric care coordinator to a significant other at home: No Do you presently have visiting nurse or other home services: No 75 years or older and lives alone: No Alcohol intake: current Alcohol intake frequency: holidays/special occasions only Patient Tobacco Use Status: Current someday Tobacco user Tobacco use type: Cigar e-Cigarette/Vaping Use: Never Used service: No Current occupational status: retired Sexual orientation: Unable to collect Gender identity: Unable to collect Cognitive needs: No Hearing needs: No Vision needs: Yes (Prescription glasses) Questionnaire Thrive Questionnaire Date Thrive assessed: 05/28/24 I am a: Patient What is your living situation today?: I have a steady place to live Within the past 12 months, did the food you bought not last and you didn't have the money to get more?: Never true Within the past 12 months, did you worry whether your food would run out before you got money to buy more?: Never true Do you have trouble paying for medicines?: Yes Do you have trouble getting transportation to medical appointments?: No Do you have trouble paying your heating and electricity bill?: No Do you have trouble taking care of your child, family member or friend?: No Do you have trouble with day-to-day activities such as bathing, preparing meals, shopping, managing finances, etc.?: No Are you currently unemployed and looking for a job?: No Are you interested in more education?: No Currently or been in a relationship where the following occur: No concerns reported THRIVE Score: 0 IAIN-7 AMB Questionnaire IAIN-7 Date IAIN - 7 assessed: 05/28/24 Source: Developed by Drs. Dennis Shane, Natalia Mcelroy, Cecil Phillips and colleagues, with an educational marley from [employer]. Review of Systems Const Denies chills, Denies fatigue, Denies fever(s), Denies headache(s) and Denies weakness ENT Denies dizziness and Denies headache(s) Card Denies chest pain, Denies lightheadedness, Denies dyspnea and Denies other (Palpitations) Resp Denies cough, Denies dyspnea, Denies wheezing and Denies other ( shortness of breath) Musc Denies numbness and Denies tingling Neuro Denies dizziness, Denies headache(s), Denies numbness, Denies tingling, Denies paresthesias and Denies weakness Psych Denies anxiety and Denies depression Endo Denies fatigue Aller/Immun Denies wheezing Physical exam (Primary Care) Vital Signs: Last Vital Signs Temp 98.6 F 02/19/25 08:49 Pulse 79 02/19/25 08:49 Resp 16 02/19/25 08:49 BP 122/78 02/19/25 08:49 Pulse Ox 95 02/19/25 08:49 Oxygen Delivery Method Room Air 02/19/25 08:49 BMI result Body Mass Index 33.6 Tobacco/Smoking Status: Tobacco use Status Tobacco use date assessed 02/19/25 02/19/25 08:53 Patient Tobacco Use Status Current someday Tobacco 02/19/25 08:48 Tobacco use type Cigar 02/19/25 08:48 e-Cigarette/Vaping Use Never Used 02/19/25 08:48 Thrive Assessment: Date of Thrive Assessment Date Thrive assessed 05/28/24 02/19/25 08:40 Currently or been in a relationship where the following occur: No concerns reported Const General: no acute distress and well developed Nutritional Appearance: well nourished Orientation/consciousness: patient oriented x3 [facility] Head: Yes normocephalic and Yes atraumatic Eyes General: appearance normal, both eyes and all related structures Pupils: Equal, round and reactive pupils present EOM: EOMs intact bilaterally Resp Effort & Inspection: normal respiratory effort Auscultation: clear to auscultation bilaterally Cardio Rate: regular rate Rhythm: regular rhythm Heart sounds: S1 normal heart sound present, S2 normal heart sound present, no gallops, no murmurs and no rubs Neuro General: patient oriented x3 and gait normal Cranial nerves: Yes Equal, round and reactive pupils present Psych Affect: normal affect Results AMB Hemoglobin A1c AMB Hemoglobin A1c 6.3 % Last Edit by Na Youssef MA on 02/19/25 09:03 Results Reviewed Results Reviewed: Laboratory Last Values Hgb A1c (Clinic) 6.3 % (4.0-6.0) H 02/19/25 08:57 Coding Level of Care Code Est Pt Level 5 (09039) Diagnoses Diabetes E11.9 Pre-op exam Z01.818 Essential hypertension I10 GERD (gastroesophageal reflux disease) K21.9 Elevated PSA R97.20 Depression with anxiety F41.8 Assessment & Plan Assessment & Plan (1) Diabetes: Code(s): E11.9 - Type 2 diabetes mellitus without complications Category: Medical Plan: A1c 6.3%. Good control. Goal is less than 7.0%. Continue current medications Adding Mounjaro as discussed at prior visit. Will decrease some of his other medications if needed but this may help control blood sugars and help with weight loss. (2) Pre-op exam: Code(s): Z01.818 - Encounter for other preprocedural examination Category: Medical Plan: Preoperative clearance for iridotomy. Surgeon: Dr. Calderon Date R eye: 03/14/2025. L Eye: 04/01/2025 Procedure: Iridotomy Anesthesia: Local No prior cardiac disease. Cardiac exam today is normal No prior pulmonary disease. Pulmonary exam is normal No prior complications to surgeries or anesthesias. No clotting bleeding disorders. Good functional reserve. Patient walks his dog 1/2 mi twice a day. Low risk patient for low risk procedure No contraindications to proceeding with proposed procedure. (3) Essential hypertension: Code(s): I10 - Essential (primary) hypertension Category: Medical Plan: Blood pressure is well controlled. Goal is less than 140/90 Continue current medication Encouraged weight loss and exercise (4) GERD (gastroesophageal reflux disease): Code(s): K21.9 - Gastro-esophageal reflux disease without esophagitis Category: Medical Plan: Patient notes that omeprazole which was started at last visit is controlling his symptoms well. Continue current medication and avoid trigger foods. Encouraged weight loss (5) Elevated PSA: Code(s): R97.20 - Elevated prostate specific antigen [PSA] Category: Medical Plan: Patient has seen Urology and is awaiting retroperitoneal ultrasound. Awaiting scheduling Follow-up with urology as recommended (6) Depression with anxiety: Code(s): F41.8 - Other specified anxiety disorders Category: Medical Plan: Patient says this has resolved. He tried citalopram but did not like it He will let me know if he is having any further trouble. Orders: Orders AMB Hemoglobin A1c Today E11.9 - Type 2 diabetes mellitus without complications Medications: New tirzepatide (Mounjaro) for 4 weeks 2.5 mg (0.5 mL) subcut QWEEK 2 mL 3RF 28 days
[2025-02-19 08:49] VITALS: BP 122/78; PULSE 79; RESP 16; TEMP 37; O2SAT 95; BMI 33.6
== END 2025-02-19 09:37 | disposition home or self-care (01) ==
LOC: HO.HMCFM 08:25
PROVIDERS: PCP Family Medicine; Visit Provider Family Medicine
DX: E11.9 Type 2 diabetes mellitus without complications (principal); Z01.818 Encounter for other preprocedural examination; I10 Essential (primary) hypertension; K21.9 Gastro-esophageal reflux disease without esophagitis; R97.20 Elevated prostate specific antigen [PSA]; F41.8 Other specified anxiety disorders

== ENCOUNTER → 2025-02-19 08:24 | Outpatient (BNVA) | payer BC, MEDICARE, SELFPAY | PROVIDERS: PCP Family Medicine; Visit Provider Family Medicine | DX: Z01.818 Encounter for other preprocedural examination (principal); E11.9 Type 2 diabetes mellitus without complications; I10 Essential (primary) hypertension; K21.9 Gastro-esophageal reflux disease without esophagitis; R97.20 Elevated prostate specific antigen [PSA]; F41.8 Other specified anxiety disorders | CPT/HCPCS: 83036 ==

== ENCOUNTER 2025-04-18 10:07 | Outpatient (REF) | payer BC, MEDICARE, SELFPAY ==
--- NOTE | ~2025-04-18 | US_ITS ---
EXAMINATION: US RETROPERITONEAL COMPLETE (RENAL) CLINICAL INFORMATION: Elevated prostate specific. R 97.20.. COMPARISON: None available. TECHNIQUE: Real-time imaging of the kidneys and bladder. FINDINGS: RIGHT KIDNEY: 14 x 7 x 6 cm (SAG x AP x TRV). Volume: 312 cc. Normal echotexture. Normal renal cortical thickness. No hydronephrosis. There is a large, 9 cm exophytic anechoic lesion in the lower pole without septations or nodular components or flow on color Doppler interrogation. There is a 1.3 cm exophytic anechoic lesion in the lower pole without septations or nodular. There is a 1.5 cm anechoic lesion at the renal cortex and midportion without septations or nodular components. LEFT KIDNEY: 13 x 6 x 5 cm (SAG x AP x TRV). Volume: 175 cc. Normal echotexture. Normal renal cortical thickness. No hydronephrosis. No gross solid or cystic lesion. BLADDER: Fluid-filled. Bilateral ureteral jets are demonstrated. Prevoid bladder volume is 167 mL. Postvoid bladder volume is 22 mL. Prostate gland is heterogeneous and nodular with punctate calcifications measures 6.4 x 5 x 5.7 cm, volume 95 cc., protruding upon the urinary bladder floor. US/US retroperitoneal comp IMPRESSION: Concerning benign prostate hyperplasia. Malignancy cannot be excluded. No hydronephrosis. Bilateral simple renal cysts, largest measures 9 cm in the right kidney.. Electronically signed by: Rickey Castro MD 04/18/2025 11:54 AM EDT
--- OUTSIDE RECORDS SUMMARY | 2025-04-18 11:19 | XMS_ITS | Patient Health Record ---
Author Organization [employer] Address [address] [place] [address] Care Team Providers Care Clinical Research Assistant Name Role Phone Sinan Brown Unavailable [phone] Allergies No Known Allergies Reason For Referral No Information Medications Medication SIG (Take, Route, Frequency, Duration) Notes Start Date End Date Status Terbinafine HCl 250 MG Tablet 1 tablet Orally Once a day Active Collagen Ultra - Capsule as directed Orally Active Rosuvastatin Calcium 20 MG Tablet 1 tablet in the evening Orally Once a day; Duration: 90 days Active Lisinopril 10 MG Tablet 1 tablet Orally Once a day Active metFORMIN HCl 1000 MG Tablet 1 tablet with a meal Orally Once a day 10/05/2022 Active Tamsulosin HCl 0.4 MG Capsule TAKE 1 CAPSULE BY MOUTH EVERY DAY Orally Once a day; Duration: 90 days Active Nadir Multivitamin for Men - Tablet as directed Orally Active CoQ-10 30 MG Capsule as directed Orally ONCE A DAY Active Brainstrong Memory Support - Tablet as directed Orally Activ e Skyrizi 150 MG/ML Solution Prefilled Syringe as directed Subcutaneous as directed Active Otezla 30 MG Tablet 1 tablet Orally Twic e a day Not-Taking Social History Tobacco Use: Social History Observation Description Date Details (start date - stop date) Never Smoker NA - NA Social History Tobacco Use Social Info Question Answer Notes Tobacco Use/Smoking Are you a nonsmoker Tobacco use other than smoking: Are you an other tobac co user? No Drugs/Alcohol: Social Info Question Answer Notes Alcohol Screen (Audit-C) Did you have a drink containing alcohol in the past year? No Points 0 Interpretation Negative Drugs Have you used drugs other than those for medical reasons in the past 12 months? No Caffeine Intake: 1-2 cups per day Additional Details Category Social Info Options Details Drugs/Alcohol: Do you smoke marijuana? De nies Do you drink alcohol? Socially Problems Problem Type SNOMED Code ICD Code Onset Dates Problem Status W/U Status Risk Notes Problem Morbid obesity (disorder) (720855959) Morbid (severe) obesity due to excess calories (E66.01) Active confirmed BMI over 35 with Comorbidities (Hypertension) Problem Essential hypertension (18682274) Essential (primary) hypertension (I10) Active confirmed On Lisinopril Problem Prediabetes (727959171) Prediabetes (R73.03) Active confirmed Problem Hyperlipidemia (41501160) Hyperlipidemia (E78.5) Active confirmed Will refer to healthy heart Problem Psoriatic arthritis (072660572) Psoriatic arthritis (L40.50) Active confirmed From Progress Note 06/23/2021, On Calcipotriene and Otezla Problem Counseling (655863160) Cardiac risk counseling (Z71.89) Active confirmed Problem Chronic sinusitis (13036899) Sinus infection (J32.9) Active confirmed Problem Benign prostatic hypertrophy (236204140) BPH (N40.0) Active confirmed Problem Coronary artery disease (88209635) Coronary artery disease (I25.10) Active confirmed Plan Of Treatment Pending Test Test Name Order Date HIV-1, Quantitative, RNA,real time 12/29 PCP - COA 06/23/2021 PCP - COA 10/05/2022 Clayton Karuna ECG/EKG 01/08/2022 PHQ9 10/05/2022 Lipid Panel 05/31/2022 Hepatic Function Panel (7) 05/31/2022 Future Test Test Name Order Date U/S Soft Tissue - Extremity 01/05/2022 Insurance Providers Payer Name Payer Address Payer Phone Subscriber Number Group Number Insured Name Patient Relationship to Insured Coverage Start Date Coverage End Date [facility] [address] [address] [place] [address] [id number] ABELARDO CASANOVA Self - patient is the insured [employer] [place] [address] [address] [place] [address] [phone] [id number] ABELARDO CASANOVA Self - patient is the insured Medical (General) History Medical History History ICD Code COLONOSPY 2 YEARS AGO PFIZER COVID VACCINE VASECTOMY 20 YEARS AGO Surgical History Surgery Date(Month/Year) vasectomy 20 YEARS AGO
== END 2025-04-18 10:08 | disposition home or self-care (01) ==
LOC: HO.US 10:07
PROVIDERS: PCP Family Medicine; Visit Provider Urology
DX: N40.1 Benign prostatic hyperplasia with lower urinary tract symptoms (principal); R97.20 Elevated prostate specific antigen [PSA]
CPT/HCPCS: 76770

== ENCOUNTER → 2025-04-18 10:10 | Outpatient (BNV) | payer BC, MEDICARE, SELFPAY | PROVIDERS: PCP Family Medicine; Visit Provider Radiology Diagnostic Radiology | DX: N40.0 Benign prostatic hyperplasia without lower urinary tract symptoms (principal) | CPT/HCPCS: 76770 ==

== ENCOUNTER 2025-04-26 09:57 | Outpatient (AMB) | payer BC, MEDICARE, SELFPAY ==
--- NOTE | 2025-04-26 09:57 | A.OFFVIS_ITS ---
Intake Visit Reasons: 10w/US Intake Note: Patient presents today via telehealth for 10w follow up/US * Retroperitoneum US 04/18 Urology Medication:Tamsulosin Blood Thinner:None Antibiotic Allergies:None Allergies No Known Allergies Allergy (Verified 04/26/25 10:02) Medication List - Last Reconciled 04/26/25 by Cristina Del Toro MD finasteride (Proscar) 5 mg PO DAILY lisinopril 10 mg PO DAILY 90 days metformin 1,000 mg PO DAILY 90 days lt-zp-kufxj-lutein-herbal 293 120 mcg-150 mcg -50 mg (Alive Men's 50 Plus Mult ivitamin) tabs PO omeprazole 20 mg PO DAILY 30 days risankizumab-rzaa (Skyrizi) 150 mg subcut Q12W rosuvastatin 20 mg PO DAILY 90 days tamsulosin 0.4 mg PO DAILY 90 days tirzepatide (Mounjaro) 2.5 mg (0.5 mL) subcut QWEEK 28 days HPI Comments Details: 04/26/25--Tesfaye is a 74-year-old male evaluated for BPH on tamsulosin follow-up today, review ultrasound results. Renal and bladder ultrasound 04/18/2025-- Prostate gland is heterogeneous and nodular with punctate calcifications measures 6.4 x 5 x 5.7 cm, volume 95 cc., protruding upon the urinary bladder floor. Concerning benign prostate hyperplasia. Malignancy cannot be excluded. Bilateral simple renal cysts, largest measures 9 cm in the right kidney.. History of Present Illness The patient is a 74-year-old male presenting with a follow-up evaluation of Benign Prostatic Hyperplasia (BPH). The patient has been evaluated for BPH and is currently on tamsulosin therapy. A recent renal and bladder ultrasound conducted on April 18, 2025, revealed a nodular prostate gland with calcifications and a volume of 95 mL, protruding into the bladder neck area. Additionally, the ultrasound identified bilateral simple renal cysts, with the largest measuring 9 cm in the right kidney. The patient's PSA level is slightly elevated above 4 ng/mL. Results - Renal and bladder ultrasound on 04/18/25: Prostate gland nodular with calcifications, volume 95 mL, protruding into the bladder neck area. - Bilateral simple renal cysts, largest measuring 9 cm in the right kidney. Plan 1. Benign Prostatic Hyperplasia (Bph) - Continue tamsulosin therapy. - Initiate finasteride to reduce prostate size and monitor PSA levels. - Repeat PSA test in three months. - Consider MRI if further evaluation is needed for prostate nodularity. 2. Bilateral Simple Renal Cysts - No immediate intervention required for simple cysts . 02/14/2025 - The patient is a 74-year-old male presenting with elevated Prostate-Specific Antigen (PSA). - The PSA level was recorded at 4.53 on 11/09/24. - The patient has a history of elevated PSA levels, which previously led to a biopsy approximately seven to eight years ago in [place]. - The patient is currently on tamsulosin for Benign Prostatic Hyperplasia (BPH) and reports improvement in urinary symptoms. - He experiences nocturia, which has decreased since starting tamsulosin,. - The patient states high fluid intake, including diet iced tea and occasional caffeinated beverages, which may contribute to urinary frequency. Results - PSA level: 4.53ng/mL on 11/09/24 - PSA --11--24 -- 5.20 ng/mL Discussion Notes I have discussed that elevated PSA may indicate changes in the prostate including benign enlargement, cancer and an inflammatory condition. I have discussed doing a biopsy has risks and that management in early detection of prostate cancer may include active surveillance. We also discussed the impact of fluid intake, particularly caffeinated beverages, on urinary symptoms. Plan ultrasound upper and lower urinary tract with measurement of the prostate.Will consider additional medical therapy with alpha reductase inhibitor such as finasteride pending results. PFSH Medical History Psoriasis Surgical History History of vasectomy Family History Mother Blood clotting disorder Social History Household Members: None Housing: Apartment Are you a primary physician assistant primary care to a significant other at home: No Do you presently have visiting nurse or other home services: No 75 years or older and lives alone: No Alcohol intake: current Alcohol intake frequency: holidays/special occasions only Patient Tobacco Use Status: Current someday Tobacco user Tobacco use type: Cigar e-Cigarette/Vaping Use: Never Used service: No Current occupational status: retired Sexual orientation: Unable to collect Gender identity: Unable to collect Cognitive needs: No Hearing needs: No Vision needs: Yes (Prescription glasses) Review of Systems Const All systems reviewed & are unremarkable except as noted in HPI and below Reports no additional complaints Eyes Reports no additional complaints ENT Reports no additional complaints Card Reports no additional complaints Resp Reports no additional complaints GI Reports no additional complaints Reports as per HPI Musc Reports no additional complaints Skin/Breast Reports system reviewed and no additional complaints, except as documented Neuro Reports no additional complaints Psych Reports no additional complaints Endo Reports no additional complaints Eric/Lymph Reports no additional complaints Aller/Immun Reports no additional complaints Telehealth Telehealth Telehealth Platform: Emme E2MS Location of provider rendering services: practice address Location of patient: address on file Patient Identification confirmed using: Name, : Yes Telehealth method: video Patient verbally consented to treatment: Yes Patient verbally consented to billing insurance company: Yes Patient informed of any privacy concerns related to visit: Yes Results Reviewed Results Reviewed: Date of Service: 04/18/25 US RETROPERITONEAL COMPLETE (RENAL) CLINICAL INFORMATION: Elevated prostate specific. R 97.20.. COMPARISON: None available. TECHNIQUE: Real-time imaging of the kidneys and bladder. FINDINGS: RIGHT KIDNEY: 14 x 7 x 6 cm (SAG x AP x TRV). Volume: 312 cc. Normal echotexture. Normal renal cortical thickness. No hydronephrosis. There is a large, 9 cm exophytic anechoic lesion in the lower pole without septations or nodular components or flow on color Doppler interrogation. There is a 1.3 cm exophytic anechoic lesion in the lower pole without septations or nodular. There is a 1.5 cm anechoic lesion at the renal cortex and midportion without septations or nodular components. LEFT KIDNEY: 13 x 6 x 5 cm (SAG x AP x TRV). Volume: 175 cc. Normal echotexture. Normal renal cortical thickness. No hydronephrosis. No gross solid or cystic lesion. BLADDER: Fluid-filled. Bilateral ureteral jets are demonstrated. Prevoid bladder volume is 167 mL. Postvoid bladder volume is 22 mL. Prostate gland is heterogeneous and nodular with punctate calcifications measures 6.4 x 5 x 5.7 cm, volume 95 cc., protruding upon the urinary bladder floor. IMPRESSION: Concerning benign prostate hyperplasia. Malignancy cannot be excluded. No hydronephrosis. Bilateral simple renal cysts, largest measures 9 cm in the right kidney.. Assessment & Plan Assessment & Plan (1) BPH loc w urin obs/LUTS: Code(s): N40.1 - Benign prostatic hyperplasia with lower urinary tract symptoms Category: Medical (2) Elevated PSA: Code(s): R97.20 - Elevated prostate specific antigen [PSA] Category: Medical (3) Bilateral renal cysts: Code(s): N28.1 - Cyst of kidney, acquired Category: Medical (4) Calcification of prostate: Code(s): N42.89 - Other specified disorders of prostate Category: Medical Plan Plan 1. Benign Prostatic Hyperplasia (Bph) - Continue tamsulosin therapy. - Initiate finasteride to reduce prostate size and monitor PSA levels. - Repeat PSA test in three months. - Consider MRI if further evaluation is needed for prostate nodularity. 2. Bilateral Simple Renal Cysts - No immediate intervention required Orders: Orders PSA,Total (Free>4and<10) Today N40.1 - Benign prostatic hyperplasia with lower urinary tract symptoms, R97.20 - Elevated prostate specific antigen [PSA] Medications: New finasteride (Proscar) 5 mg PO DAILY 90 tabs 3RF N40.1 - Benign prostatic hyperplasia with lower urinary tract symptoms Refilled tamsulosin 0.4 mg PO DAILY 90 caps 3RF 90 days Patient Instructions: The patient had an opportunity to ask questions regarding treatment plan. The patient expressed understanding and agreement with the above treatment plan. The patient is aware they should contact our office by phone for worsening of their current condition or the appearance of new symptoms. Compliance is encouraged with any medications and followup testing that is ordered. It is a privilege to be allowed the opportunity to participate in the urologic care of your patient. If you have any questions or concerns regarding treatment for the above conditions please do not hesitate to contact me. The office telephone contact is [phone]. This note is constructed in part using voice recognition software. While every effort has been made to ensure accuracy merchandise clerk errors may have been included. Yours sincerely, Cristina Del Toro MD Scribe Plan - Not visible on output: Patient was informed and verbally consented to the use of an ambient scribe for clinic note documentation during this visit. Coding Level of Care Code Tele Est Pt Level 4 (91267) Complex EM visit Add On G2211 Diagnoses BPH loc w urin obs/LUTS N40.1 Elevated PSA R97.20 Bilateral renal cysts N28.1 Calcification of prostate N42.89
--- OUTSIDE RECORDS SUMMARY | 2025-04-26 11:14 | XMS_ITS | Patient Health Record ---
Author Organization [facility] [employer] Address [address] [place] [address] Care Team Providers Care Science Teacher Name Role Phone Sinan Brown Unavailable [phone] Allergies No Known Allergies Reason For Referral [...] Status Risk Notes Problem Morbid obesity (disorder) (642801065) Morbid (severe) obesity due to excess calories (E66.01) Active confirmed BMI over 35 with Comorbidities (Hypertension) Problem Essential hypertension (85648103) Essential (primary) hypertension (I10) Active confirmed On Lisinopril Problem Prediabetes (415542237) Prediabetes (R73.03) Active confirmed Problem Hyperlipidemia (40561775) Hyperlipidemia (E78.5) Active confirmed Will refer to healthy heart Problem Psoriatic arthritis (924621595) Psoriatic arthritis (L40.50) Active confirmed From Progress Note 06/23/2021, On Calcipotriene and Otezla Problem Counseling (184346618) Cardiac risk counseling (Z71.89) Active confirmed Problem Chronic sinusitis (07468761) Sinus infection (J32.9) Active confirmed Problem Benign prostatic hypertrophy (528242926) BPH (N40.0) Active confirmed Problem Coronary artery disease (06479264) Coronary artery disease (I25.10) Active confirmed Plan Of Treatment Pending Test Test Name Order Date HIV-1, Quantitative, RNA,real time 12/29 PCP - COA 06/23/2021 PCP - COA 10/05/2022 [facility] [place] ECG/EKG 01/08/2022 PHQ9 10/05/2022 Lipid Panel 05/31/2022 Hepatic Function Panel (7) 05/31/2022 Future Test Test Name Order Date U/S Soft Tissue - Extremity 01/05/2022 Insurance Providers Payer Name Payer Address Payer Phone Subscriber Number Group Number Insured Name Patient Relationship to Insured Coverage Start Date Coverage End Date [facility] [address] [address] [place] [address] [id number] ABELARDO CASANOVA Self - patient is the insured [place] [place] [address] [address] [place] [address] [phone] [id number] ABELARDO CASANOVA Self - patient is the insured Medical (General) History Medical History History ICD Code COLONOSPY 2 YEARS AGO PFIZER COVID VACCINE VASECTOMY 20 YEARS AGO Surgical History Surgery Date(Month/Year) vasectomy 20 YEARS AGO
== END 2025-04-26 10:43 | disposition home or self-care (01) ==
LOC: HO.HUSH 09:57
PROVIDERS: PCP Family Medicine; Visit Provider Urology
DX: N40.1 Benign prostatic hyperplasia with lower urinary tract symptoms (principal); R97.20 Elevated prostate specific antigen [PSA]; N28.1 Cyst of kidney, acquired; N42.89 Other specified disorders of prostate
CPT/HCPCS: 99214

== ENCOUNTER 2025-05-22 08:05 | Outpatient (AMB) | payer BC, MEDICARE, SELFPAY ==
--- NOTE | 2025-05-22 08:08 | A.OFFPC_ITS ---
Vital Signs 05/22/25 08:22 Height 5 ft 8 in Weight 205 lb 6 oz BMI 31.2 BP 118/60 Blood Pressure Location Rt brachial Position Sitting Pulse 85 Pulse Source Pulse Oximeter Temp 97.5 F Temp Source Temporal Artery Scan Pulse Oximetry (%) 97 Oxygen Delivery Method Room Air Intake Visit Reasons: Follow-up diabetes and hypertension /mood Intake Note: patient here for follow up on DM and HTN and mood Online Health And Fitness Coach Required: No Allergies No Known Allergies Allergy (Verified 04/26/25 10:02) Medication List - Last Reconciled 05/22/25 by Maurice Dodson MD finasteride (Proscar) 5 mg PO DAILY lisinopril 10 mg PO DAILY 90 days metformin 850 mg PO DAILY 90 days co-cq-nsajj-lutein-herbal 293 120 mcg-150 mcg -50 mg (Alive Men's 50 Plus Multivitamin) tabs PO omeprazole 20 mg PO DAILY 30 days risankizumab-rzaa (Skyrizi) 150 mg subcut Q12W rosuvastatin 20 mg PO DAILY 90 days tamsulosin 0.4 mg PO DAILY 90 days tirzepatide (Mounjaro) 2.5 mg (0.5 mL) subcut QWEEK 28 days Tobacco use date assessed: 02/19/25 Fall risk assessment: No Falls in past year Last assessed Fall Risk: 05/22/25 Dental Screening Dental Screen Date: 05/22/25 Did you have a dental visit in the last 12 months?: Yes Did you have a dental problem in the last 6 months where you did not have access to dental care?: No Was dental information given to patient?: Patient has dentist HPI Follow-up diabetes and hypertension /mood HPI Details 74 y/o male presents to f/u diabetes, hy pertension. A1c today 05/22/25 5.7%. He is on Mounjaro 2.5mg, metformin 1000mg daily. Blood pressure today 118/60, 85p. Continues to use finafestride for BPH which continues to help. HPI Comments History of Present Illness Details Documentation assistance for Maurice Dodson MD, was provided by Yadiel Marques,? Push Bench Operator Helper on 05/22/2025 at 8:40 AM EST. I, Dr. Dodson, have read, observed, and verified documentation. ? PFSH Medical History Psoriasis Surgical History History of vasectomy Family History Mother Blood clotting disorder Social History Household Members: None Housing: Apartment Are you a primary health care legal assistant to a significant other at home: No Do you presently have visiting nurse or other home services: No 75 years or older and lives alone: No Alcohol intake: current Alcohol intake frequency: holidays/special occasions only Patient Tobacco Use Status: Current someday Tobacco user Tobacco use type: Cigar e-Cigarette/Vaping Use: Never Used service: No Current occupational status: retired Sexual orientation: Unable to collect Gender identity: Unable to collect Cognitive needs: No Hearing needs: No Vision needs: Yes (Prescription glasses) Questionnaire Thrive Questionnaire Date Thrive assessed: 11/08/24 I am a: Patient What is your living situation today?: I have a steady place to live Within the past 12 months, did the food you bought not last and you didn't have the money to get more?: Never true Within the past 12 months, did you worry whether your food would run out before you got money to buy more?: Never true Do you have trouble paying for medicines?: Yes Do you have trouble getting transportation to medical appointments?: No Do you have trouble paying your heating and electricity bill?: No Do you have trouble taking care of your child, family member or friend?: No Do you have trouble with day-to-day activities such as bathing, preparing meals, shopping, managing finances, etc.?: No Are you currently unemployed and looking for a job?: No Are you interested in more education?: No Currently or been in a relationship where the following occur: No concerns reported THRIVE Score: 0 IAIN-7 AMB Questionnaire IAIN-7 Date IAIN - 7 assessed: 05/28/24 Source: Developed by Drs. Dennis Shane, Natalia Mcelroy, Cecil Phillips and colleagues, with an educational marley from [employer]. Review of Systems Const Denies chills, Denies fatigue, Denies fever(s), Denies headache(s) and Denies weakness ENT Denies dizziness and Denies headache(s) Card Denies dyspnea Resp Denies cough, Denies dyspnea, Denies wheezing and Denies other (shortness of breath) Musc Denies numbness and Denies tingling Neuro Denies dizziness, Denies headache(s), Denies numbness, Denies tingling and Denies weakness Psych Denies anxiety and Denies depression Endo Denies fatigue Aller/Immun Denies wheezing Physical exam (Primary Care) Vital Signs: Last Vital Signs Temp 97.5 F 05/22/25 08:22 Pulse 85 05/22/25 08:22 BP 118/60 05/22/25 08:22 Pulse Ox 97 05/22/25 08:22 Oxygen Delivery Method Room Air 05/22/25 08:22 BMI result Body Mass Index 31.2 Tobacco/Smoking Status: Tobacco use Status Tobacco use date assessed 02/19/25 05/22/25 08:10 Patient Tobacco Use Status Current someday Tobacco 05/22/25 08:10 Tobacco use type Cigar 05/22/25 08:10 e-Cigarette/Vaping Use Never Used 05/22/25 08:10 Thrive Assessment: Date of Thrive Assessment Date Thrive assessed 11/08/24 05/22/25 08:10 Currently or been in a relationship where the following occur: No concerns reported Const General: well developed; No acute distress Nutritional Appearance: well nourished Orientation/consciousness: patient oriented x3 HENMT Head: Yes normocephalic and Yes atraumatic Eyes General: appearance normal, both eyes and all related structures Pupils: Equal, round and reactive pupils present EOM: EOMs intact bilaterally Resp Effort & Inspection: normal respiratory effort Neuro General: patient oriented x3 and gait normal Cranial nerves: Yes Equal, round and reactive pupils present Psych Affect: normal affect Coding Level of Care Code Est Pt Level 4 (66297) Diagnoses Essential hypertension I10 Diabetes E11.9 BPH loc w urin obs/LUTS N40.1 Psoriatic arthritis L40.50 Screening for tuberculosis Z11.1 Assessment & Plan Assessment & Plan (1) Essential hypertension: Code(s): I10 - Essential (primary) hypertension Category: Medical Plan: Blood pressure is well controlled. Goal is less than 140/90 Continue current medication Watch salt and sodium (2) Diabetes: Code(s): E11.9 - Type 2 diabetes mellitus without complications Category: Medical Plan: A1c has improved further from 6.3% to 5.7%. Goal is less than 7%. Good control. He is taking metformin 1000 mg daily and has been taking Mounjaro 2.5 mg daily He would like to increase Mounjaro to 5 mg daily. We will also decrease metformin to 850 mg daily. (3) BPH loc w urin obs/LUTS: Code(s): N40.1 - Benign prostatic hyperplasia with lower urinary tract symptoms Category: Medical Plan: Now taking finasteride as well as tamsulosin No problems with these medications Urinating well Has follow-up with Urology (4) Psoriatic arthritis: Code(s): L40.50 - Arthropathic psoriasis, unspecified Category: Medical Plan: Taking Skyrizi Will need screening for tuberculosis Follow-up with dermatology & rheumatology as recommended (5) Screening for tuberculosis: Code(s): Z11.1 - Encounter for screening for respiratory tuberculosis Category: Medical Plan: Ordering T spot. Orders: Orders Complete Blood Count Auto Diff Today Z00.00 - Encounter for general adult medical examination without abnormal findings Microalbumin, Random (w Creat) Today I10 - Essential (primary) hypertension Prostate Specific Antigen Scr Today Z12.5 - Encounter for screening for malignant neoplasm of prostate Lipid Panel Today Z00.00 - Encounter for general adult medical examination without abnormal findings UA CC w/rflx Micro + Cult Today Z00.00 - Encounter for general adult medical examination without abnormal findings Hemoglobin A1c Today R73.01 - Impaired fasting glucose Comprehensive Cannon. Panel Fast Today Z00.00 - Encounter for general adult medical examination without abnormal findings TSH reflex Free T4 Today Z00.00 - Encounter for general adult medical examination without abnormal findings T Spot TB Today Z11.1 - Encounter for screening for respiratory tuberculosis Medications: Changed From metformin 1,000 mg PO DAILY 90 days 90 tabs 1RF To metformin 850 mg PO DAILY 90 tabs 2RF 90 days From tirzepatide (Mounjaro) for 4 weeks 2.5 mg (0.5 mL) subcut QWEEK 28 days 2 mL 3RF To tirzepatide for 4 weeks 5 mg (0.5 mL) subcut QWEEK 2 mL 3RF 28 days
--- OUTSIDE RECORDS SUMMARY | 2025-05-22 08:15 | XMS_ITS | Patient Health Record ---
Author Organization [facility] Address [address] [place] [address] Care Team Providers Care It Manager Name Role Phone Sinan Brown Unavailable [phone] Allergies No Known Allergies Reason For Referral [...] Status Risk Notes Problem Morbid obesity (disorder) (744092837) Morbid (severe) obesity due to excess calories (E66.01) Active confirmed BMI over 35 with Comorbidities (Hypertension) Problem Essential hypertension (37382900) Essential (primary) hypertension (I10) Active confirmed On Lisinopril Problem Prediabetes (592443695) Prediabetes (R73.03) Active confirmed Problem Hyperlipidemia (40582425) Hyperlipidemia (E78.5) Active confirmed Will refer to healthy heart Problem Psoriatic arthritis (493146897) Psoriatic arthritis (L40.50) Active confirmed From Progress Note 06/23/2021, On Calcipotriene and Otezla Problem Counseling (395472036) Cardiac risk counseling (Z71.89) Active confirmed Problem Chronic sinusitis (58185432) Sinus infection (J32.9) Active confirmed Problem Benign prostatic hypertrophy (546299775) BPH (N40.0) Active confirmed Problem Coronary artery disease (15437175) Coronary artery disease (I25.10) Active confirmed Plan Of Treatment Pending Test Test Name Order Date HIV-1, Quantitative, RNA,real time 12/29 PCP - COA 10/05/2022 PCP - COA 06/23/2021 [facility] [place] ECG/EKG 01/08/2022 PHQ9 10/05/2022 Lipid Panel 05/31/2022 Hepatic Function Panel (7) 05/31/2022 Future Test Test Name Order Date U/S Soft Tissue - Extremity 01/05/2022 Insurance Providers Payer Name Payer Address Payer Phone Subscriber Number Group Number Insured Name Patient Relationship to Insured Coverage Start Date Coverage End Date [facility] [address] [address] [place] [address] [phone] [id number] ABELARDO CASANOVA Self - patient is the insured [place] [place] [address] [address] [place] [address] [phone] [id number] ABELARDO CASANOVA Self - patient is the insured Medical (General) History Medical History History ICD Code COLONOSPY 2 YEARS AGO PFIZER COVID VACCINE VASECTOMY 20 YEARS AGO Surgical History Surgery Date(Month/Year) vasectomy 20 YEARS AGO
[2025-05-22 08:22] VITALS: BP 118/60; PULSE 85; TEMP 36.4; O2SAT 97; BMI 31.2
== END 2025-05-22 08:45 | disposition home or self-care (01) ==
LOC: HO.HMCFM 08:06
PROVIDERS: PCP Family Medicine; Visit Provider Family Medicine
DX: I10 Essential (primary) hypertension (principal); E11.9 Type 2 diabetes mellitus without complications; N40.1 Benign prostatic hyperplasia with lower urinary tract symptoms; L40.50 Arthropathic psoriasis, unspecified; Z11.1 Encounter for screening for respiratory tuberculosis

== ENCOUNTER → 2025-05-22 08:05 | Outpatient (BNVA) | payer BC, MEDICARE, SELFPAY | PROVIDERS: PCP Family Medicine; Visit Provider Family Medicine | DX: Z11.1 Encounter for screening for respiratory tuberculosis (principal); I10 Essential (primary) hypertension; E11.9 Type 2 diabetes mellitus without complications; N40.1 Benign prostatic hyperplasia with lower urinary tract symptoms; L40.50 Arthropathic psoriasis, unspecified | CPT/HCPCS: 83036 ==

== ENCOUNTER 2025-06-14 09:02 | Outpatient (REF) | payer BC, MEDICARE, SELFPAY ==
--- OUTSIDE RECORDS SUMMARY | 2025-06-14 09:41 | XMS_ITS | Patient Health Record ---
Author Organization [facility] Address [address] [place] [address] Care Team Providers Care Batch Room Technician Name Role Phone Sinan Brown Unavailable [phone] Allergies No Known Allergies Reason For Referral [...] Status Risk Notes Problem Morbid obesity (disorder) (457210746) Morbid (severe) obesity due to excess calories (E66.01) Active confirmed BMI over 35 with Comorbidities (Hypertension) Problem Essential hypertension (68263374) Essential (primary) hypertension (I10) Active confirmed On Lisinopril Problem Prediabetes (053457119) Prediabetes (R73.03) Active confirmed Problem Hyperlipidemia (37368670) Hyperlipidemia (E78.5) Active confirmed Will refer to healthy heart Problem Psoriatic arthritis (908651321) Psoriatic arthritis (L40.50) Active confirmed From Progress Note 06/23/2021, On Calcipotriene and Otezla Problem Counseling (207194899) Cardiac risk counseling (Z71.89) Active confirmed Problem Chronic sinusitis (85163956) Sinus infection (J32.9) Active confirmed Problem Benign prostatic hypertrophy (520979180) BPH (N40.0) Active confirmed Problem Coronary artery disease (98662037) Coronary artery disease (I25.10) Active confirmed Plan Of Treatment Pending Test Test Name Order Date HIV-1, Quantitative, RNA,real time 12/29 PCP - COA 06/23/2021 PCP - COA 10/05/2022 [facility] [place] ECG/EKG 01/08/2022 PHQ9 10/05/2022 Lipid Panel 05/31/2022 Hepatic Function Panel (7) 05/31/2022 Future Test Test Name Order Date U/S Soft Tissue - Extremity 01/05/2022 Insurance Providers Payer Name Payer Address Payer Phone Subscriber Number Group Number Insured Name Patient Relationship to Insured Coverage Start Date Coverage End Date [facility] [address] [address] [place] [address] [phone] [id number] ABELARDO CASANOVA Self - patient is the insured [place] [place] [address] [address] [place] [address] [id number] ABELARDO CASANOVA Self - patient is the insured Medical (General) History Medical History History ICD Code COLONOSPY 2 YEARS AGO PFIZER COVID VACCINE VASECTOMY 20 YEARS AGO Surgical History Surgery Date(Month/Year) vasectomy 20 YEARS AGO
[2025-06-14 11:28] LABS: MANUAL DIFF FLAG NO
[2025-06-14 11:36] LABS: Hematocrit 49.5 % (42.0-52.0); Hemoglobin 16.4 g/dl (14.0-18.0); Imm Gran Abs Auto 0.03 X10*3/uL (0.00-0.03); Imm Gran Pct Auto 0.3 % (0.0-0.4); Lymphocytes Absolute Auto 2.7 X10*3/uL (1.2-4.9); Mean Corpuscular HGB Conc 33.1 g/dl (31.0-36.0); Mean Corpuscular Hemoglobin 29.7 pg (27.0-33.0); Mean Corpuscular Volume 89.5 fL (80.0-98.0); NRBC Abs Auto 0.000 X10*3/uL (0.0-0.012); NRBC Pct Auto 0.0 /100WBC (0.0-0.2); Platelet Count 240 X10*3/uL (160-400); Red Blood Count 5.53 X10*6/uL (4.60-5.80); White Blood Count 9.0 X10*3/uL (4.8-10.8)
[2025-06-14 11:41] LABS: Appearance Urine Clear; Glucose Urine UA Negative (Negative); PH 6.5 (5.0-9.0); Specific Gravity - Urine 1.015 (1.005-1.025); UMIC TRIGGER UACC YES
[2025-06-14 11:51] LABS: UACC Culture Trigger YES
[2025-06-14 11:58] LABS: Alanine Aminotransferase 29 U/L (0-40); Albumin Level 4.4 g/dL (3.5-5.0); Alkaline Phosphatase 36 U/L (39-117); Anion Gap 12 (12-20); Aspartate Amino Transferase 41 U/L (5-37); Blood Urea Nitrogen 13 mg/dL (9-16); Calcium 9.3 mg/dL (8.4-10.2); Carbon Dioxide 29 mmol/L (22-29); Chloride 103 mmol/L (96-108); Cholesterol 106 mg/dL (<200); Estimated Glomerular Filt Rate > 60; HDL Cholesterol 38 mg/dL (>40); Potassium 4.0 mmol/L (3.3-5.1); Sodium 140 mmol/L (135-145); Total Protein 7.1 g/dL (6.5-8.0); Triglycerides 107 mg/dL (<150)
[2025-06-14 12:10] LABS: PSA,Total (Free>4and<10) 3.68 ng/mL (0.00-4.00)
[2025-06-14 12:29] LABS: Microalbum/Creatinine Ratio Ur 5.9 ug/mg cr (<30)
[2025-06-14 13:03] LABS: Free T4 (Free Thyroxine) 1.06 ng/dL (0.71-1.85)
[2025-06-17 18:28] LABS: TS Negative Control Passed; TS Panel A 0; TS Panel B 0; TS Positive Control Passed; TSpotTB Negative (Negative)
== END 2025-06-14 09:03 | disposition home or self-care (01) ==
LOC: HO.WFDLDS 09:02
PROVIDERS: Urology; Visit Provider Family Medicine
DX: Z00.00 Encounter for general adult medical examination without abnormal findings (principal); N40.1 Benign prostatic hyperplasia with lower urinary tract symptoms; R97.20 Elevated prostate specific antigen [PSA]; I10 Essential (primary) hypertension; Z12.5 Encounter for screening for malignant neoplasm of prostate; R73.01 Impaired fasting glucose; Z11.1 Encounter for screening for respiratory tuberculosis
CPT/HCPCS: 36415; 80053; 80061; 81001; 82043; 82570; 83036; 84153; 84439; 84443; 85025; 86481; 87086

== ENCOUNTER 2025-06-20 14:11 | Outpatient (AMB) | payer MEDICARE, SELFPAY ==
--- OUTSIDE RECORDS SUMMARY | 2009-08-12 03:30 | XMS_ITS | Continuity of Care Document ---
Author Organization Lex Still MD [facility] Address [address] [place] [address] [place] [address] Phone Care Team Providers Care College Specialist Name Role Phone Lex Still MD Unavailable Unavailable Procedures Procedure Date Offc/outpt E&M Estab Low-mod Postop F/U Visit Incld Global 9 Postop F/U Visit Incld Global 9 Postop F/U Visit Incld Global 9 REMOVAL OF EYE LESION Exc Joseph Les Face; 0.5 Cm/less 9 Offc/outpt E&M Estab Low-mod Advance Directives Directive Yes / No Effective Date File Name No Information Encounters Encounter Description Practice Location Reason(s) For Visit Diagnoses Date Provider Providers Copied on Encounter Offc/outpt E&M Estab Low-mod Lex Still MD [facility], [address] [place] [address], [facility], tel:[phone] [facility] No Information Cheko Burnett. [address] [place] [address], [place], [place], [id number] , [place]. tel:[phone] Referring Provider: Lex STANFORD I, [address] [place] [address], [address] . tel:[phone] Lex Still MD [facility], [address] [place] [address], [address], tel:[phone] [facility] No Information Cheko Burnett. [address] [place] [address], [place] [address], [place], [place], [id number] , [place]. tel:[phone] Lex Still MD [facility], [address] [place], [place] [address] [address] [place] [address], [facility], tel:[phone] [facility] No Information Cheko Burnett. [facility] [address], [address], [place], [place], [id number] , [place]. tel:[phone] Referring Provider: Lex STANFORD I, [facility] [address] [facility], [place], [address] . tel:[phone] Lex Still MD [facility], [address] [place], [place] [address] [address] [place] [address], [facility], tel:[phone] [facility] No Information Cheko Burnett. [address] [place] [address] Rd, [address], [place], [place], [address] [place] [address] , [place]. tel:[phone] Lex Stlil MD [facility], [address] [place], [place] [address] [address] [place] [address], [facility], tel:[phone] [facility] [place] No Information Cheko Burnett. [address] [place] [address] Rd, [address], [place], [address] [place] [address] , [place]. tel:[phone] Offc/outpt E&M Estab Low-mod Lex Still MD [facility], [address] [place], [place] [address] [address] [place] [address], [facility], tel:[phone] [facility] No Information Cheko Burnett. [facility] [address], [place], [place], [address] [place] [address] , [place]. tel:[phone] Referring Provider: Lex STANFORD I, [facility] [address] [facility], [place], [address] . tel:[phone] Family History Family Member Type Diagnosis Age At Onset No Information Payers Payer name Insurance type Covered green party ID Authoriza tion(s) No Information Social History Type Description Quantity Date Captured Comments Sex Male Smoking Status No Information Chief Complaint And Reason For Visit No Information Reason For Referral Reason For Referral No Information History Of Present Illness Encounter Date Complaint History Of Prese nt Illness No Information Functional Status Date Functional Assessmen t No Information Instructions Date Instruction Additional Infor mation No Information Assessments Type Assessment Date No Information Patient Care Teams Name Effective Dates (start - stop) Status Members No Information
--- NOTE | 2025-06-20 14:14 | A.OFFPC_ITS ---
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 Labs drawn 06/14/25. Reviewed labs with pt. Elevated fasting glucose 105. A1c 5.4%. AST 41, ALT 29. Triglycerides 107. TC 106. LDL 47. HDL low at 38. PSA 3.72. Total PSA 3.68. TSH low at 0.01 uIU/mL. BP today 113/61, 90p. He is on lisinopril 10mg daily. [facility] Medical History Psoriasis Surgical History History of vasectomy Family History Mother Blood clotting disorder Social History (Updated 06/20/25 @ 14:32 by Zehra Marino CMA) Household Members: None Housing: Apartment Are you a primary career resource technician to a significant other at home: No Do you presently have visiting nurse or other home services: No 75 years or older and lives alone: No Alcohol intake: current Alcohol intake frequency: holidays/special occasions only Patient Tobacco Use Status: Current someday Tobacco user Tobacco use type: Cigar e-Cigarette/Vaping Use: Never Used service: No Current occupational status: retired Sexual orientation: Unable to collect Gender identity: Unable to collect Cognitive needs: No Hearing needs: No Vision needs: Yes (Prescription glasses) Questionnaire Thrive Questionnaire Date Thrive assessed: 11/08/24 I am a: Patient What is your living situation today?: I have a steady place to live Within the past 12 months, did the food you bought not last and you didn't have the money to get more?: Never true Within the past 12 months, did you worry whether your food would run out before you got money to buy more?: Never true Do you have trouble paying for medicines?: Yes Do you have trouble getting transportation to medical appointments?: No Do you have trouble paying your heating and electricity bill?: No Do you have trouble taking care of your child, family member or friend?: No Do you have trouble with day-to-day activities such as bathing, preparing meals, shopping, managing finances, etc.?: No Are you currently unemployed and looking for a job?: No Are you interested in more education?: No Currently or been in a relationship where the following occur: No concerns reported THRIVE Score: 0 AUDIT C Alcohol Use Questionnaire (AUDIT-C) 1. How often do you have a drink containing alcohol?: Never 3. How often do you have six or more drinks on one occasion?: Never Total Score: 0 IAIN-7 AMB Questionnaire IAIN-7 Date IAIN - 7 assessed: 05/28/24 Source: Developed by Drs. Dennis Shane, Natalia Mcelroy, Cecil Phillips and colleagues, with an educational marley from [employer] Review of Systems Const Denies chills, Denies fatigue, Denies fever(s), Denies headache(s) and Denies weakness Eyes Denies change in vision ENT Denies dizziness, Denies headache(s), Denies hearing loss, Denies nasal congestion, Denies sinus pain, Denies sinus pressure and Denies sore throat Card Denies chest pain, Denies lightheadedness, Denies dyspnea and Denies other (palpitations) Resp Denies cough, Denies dyspnea and Denies wheezing GI Denies abdominal pain, Denies melena, Denies hematochezia, Denies change in bowel habits, Denies dyspepsia and Denies nausea Denies hematuria and Denies dysuria Musc Denies abnormal gait, Denies myalgias, Denies arthralgias, Denies numbness and Denies tingling Skin/Breast Denies rash, Denies unusual bruising and Denies wounds Neuro Denies abnormal gait, Denies dizziness, Denies headache(s), Denies memory loss, Denies numbness, Denies Sensory deficit (Neuro), Denies tingling and Denies weakness Psych Denies anxiety, Denies depression and Denies memory loss Endo Denies cold intolerance, Denies fatigue, Denies heat intolerance, Denies polydipsia and Denies polyuria Eric/Lymph Denies easy bleeding and Denies easy bruising Aller/Immun Denies wheezing Physical exam (Primary Care) Vital Signs: Last Vital Signs Temp 98 F 06/20/25 14:22 Pulse 90 06/20/25 14:22 Resp 14 06/20/25 14:22 BP 113/61 06/20/25 14:22 Pulse Ox 95 06/20/25 14:22 Oxygen Delivery Method Room Air 06/20/25 14:22 BMI result Body Mass Index 30.6 Tobacco/Smoking Status: Tobacco use Status Tobacco use date assessed 02/19/25 06/20/25 14:15 Patient Tobacco Use Status Current someday Tobacco 06/20/25 14:32 Tobacco use type Cigar 06/20/25 14:32 e-Cigarette/Vaping Use Never Used 06/20/25 14:32 Thrive Assessment: Date of Thrive Assessment Date Thrive assessed 11/08/24 06/20/25 14:15 Currently or been in a relationship where the following occur: No concerns reported Const General: no acute distress, well developed, alert and awake Nutritional Appearance: well nourished Orientation/consciousness: patient oriented x3 HENMT Head: Yes normocephalic and Yes atraumatic Ears: hearing grossly normal bilaterally and TM's normal bilaterally General nose exam: Normal external nose present and Normal nares present Mouth: Normal oral and palatal mucosa present and moist mucous membranes Teeth and gingiva: dentition normal Throat: Yes posterior oropharynx normal Eyes General: appearance normal, both eyes and all related structures Pupils: Equal, round and reactive pupils present and Pupil accommodation reflex normal EOM: EOMs intact bilaterally Neck Neck: Yes normal visual inspection, Yes no lymphadenopathy and Yes trachea midline Thyroid: Thyroid normal Carotids: no bruits Lymphatic: no lymphadenopathy noted Chest Chest palpation & inspection: normal inspection of the chest Resp Effort & Inspection: normal respiratory effort Auscultation: clear to auscultation bilaterally Cardio Rate: regular rate Rhythm: regular rhythm Heart sounds: S1 normal heart sound present, S2 normal heart sound present, no gallops, no murmurs and no rubs Bruits: no abdominal aortic bruits and no carotid bruits GI Palpation (GI): No Abdominal aortic bruit present, Soft to palpation, nontender, No hepatosplenomegaly present and No Rebound tenderness present Auscultation: normal bowel sounds General: Yes no CVA tenderness Back/Spine/Pelvis Back: no CVA tenderness Cervical Spine: cervical ROM normal and No Cervical spine tenderness Thoracic/Lumbar Spine: thoraco-lumbar ROM normal, No pain with thoraco-lumbar ROM, No thoracic spinal tenderness and No lumbar spinal tenderness Skin Lesions: no lesions Rashes: no rashes Trauma: no lacerations or abrasions Wounds: no wounds Nails: normal Neuro General: patient oriented x3 Cranial nerves: Yes Equal, round and reactive pupils present Cognition (Neuro): normal cognition Gait exam (Neuro): Normal gait present Motor exam (neuro): 5/5 motor strength present throughout Sensory Exam: No Sensory deficit (Neuro) Deep tendon reflexes (DTR's): Right patellar reflex intensity grade: 2+ and Left patellar reflex intensity grade: 2+ Extrem General: Yes normal to inspection and No edema Psych Appearance: grossly normal Affect: normal affect Attitude: cooperative Thought process: Normal thought process present Coding Level of Care Code Est Pt Level 3 (77509) Est Pt Prev Care >65y(33238) Diagnoses Adult general medical exam Z00.00 Diabetes E11.9 Essential hypertension I10 Hyperlipidemia E78.5 Screening for prostate cancer Z12.5 Screening for colon cancer Z12.11 Elevated AST (SGOT) R74.01 Low TSH level R79.89 Assessment & Plan Assessment & Plan (1) Adult general medical exam: Code(s): Z00.00 - Encounter for general adult medical examination without abnormal findings Category: Medical Plan: 74-year-old male presents for complete physical exam (2) Diabetes: Code(s): E11.9 - Type 2 diabetes mellitus without complications Category: Medical Plan: A1c 5.7%. Good control. Goal is less than 7% Had recently increased Mounjaro and he is tolerating this well Continue current medication regimen (3) Essential hypertension: Code(s): I10 - Essential (primary) hypertension Category: Medical Plan: Blood pressure is well controlled. Goal is less than 140/90 Continue current medication (4) Hyperlipidemia: Code(s): E78.5 - Hyperlipidemia, unspecified Category: Medical Plan: LDL cholesterol is well controlled. HDL is a little low-increase exercise (5) Screening for prostate cancer: Code(s): Z12.5 - Encounter for screening for malignant neoplasm of prostate Category: Medical Plan: PSA has been elevated but is below for now He is on tamsulosin and finasteride and former by Urology Stable Continue medications as prescribed and follow-up with urology as recommended (6) Screening for colon cancer: Code(s): Z12.11 - Encounter for screening for malignant neoplasm of colon Category: Medical Plan: Patient had a fit test last year Will get Cologuard test next year (7) Elevated AST (SGOT): Code(s): R74.01 - Elevation of levels of liver transaminase levels Category: Medical Plan: Mildly elevated AST Hydrate well. Avoid excess alcohol and Tylenol. Continue weight loss Will recheck with next blood draw (8) Low TSH level: Code(s): R79.89 - Other specified abnormal findings of blood chemistry Category: Medical Plan: TSH is low at 0.01 and T4 is within normal range Will repeat these Orders: Orders Comprehensive Met. Panel Today R74.01 - Elevation of levels of liver transaminase levels Thyroid Stimulating Hormone Today E03.9 - Hypothyroidism, unspecified, R79.89 - Other specified abnormal findings of blood chemistry Triiodothyronine T3 Total Today E03.9 - Hypothyroidism, unspecified, R79.89 - Other specified abnormal findings of blood chemistry Free T4 (Free Thyroxine) Today E03.9 - Hypothyroidism, unspecified, R79.89 - Other specified abnormal findings of blood chemistry Thyroid Peroxidase Antibodies Today R79.89 - Other specified abnormal findings of blood chemistry Thyrotropin Receptor Antibody Today R79.89 - Other specified abnormal findings of blood chemistry Thyroid Stimulating Immunoglob Today R79.89 - Other specified abnormal findings of blood chemistry
[2025-06-20 14:22] VITALS: BP 113/61; PULSE 90; RESP 14; TEMP 36.6; O2SAT 95; BMI 30.6
--- OUTSIDE RECORDS SUMMARY | 2025-06-20 17:23 | XMS_ITS | Patient Health Record ---
Author Organization [employer] Address [address] [place] [address] Care Team Providers Care Social Worker Aide Name Role Phone Sinan Brown Unavailable [phone] Allergies No Known Allergies Reason For Referral [...] Status Risk Notes Problem Morbid obesity (disorder) (969578613) Morbid (severe) obesity due to excess calories (E66.01) Active confirmed BMI over 35 with Comorbidities (Hypertension) Problem Essential hypertension (61726217) Essential (primary) hypertension (I10) Active confirmed On Lisinopril Problem Prediabetes (030228343) Prediabetes (R73.03) Active confirmed Problem Hyperlipidemia (16343943) Hyperlipidemia (E78.5) Active confirmed Will refer to healthy heart Problem Psoriatic arthritis (728959366) Psoriatic arthritis (L40.50) Active confirmed From Progress Note 06/23/2021, On Calcipotriene and Otezla Problem Counseling (813050354) Cardiac risk counseling (Z71.89) Active confirmed Problem Chronic sinusitis (43058700) Sinus infection (J32.9) Active confirmed Problem Benign prostatic hypertrophy (631711302) BPH (N40.0) Active confirmed Problem Coronary artery disease (93765860) Coronary artery disease (I25.10) Active confirmed Plan Of Treatment Pending Test Test Name Order Date HIV-1, Quantitative, RNA,real time 12/29 PCP - COA 06/23/2021 PCP - COA 10/05/2022 [facility] [place] ECG/EKG 01/08/2022 PHQ9 10/05/2022 Lipid Panel 05/31/2022 Hepatic Function Panel (7) 05/31/2022 Future Test Test Name Order Date U/S Soft Tissue - Extremity 01/05/2022 Insurance Providers Payer Name Payer Address Payer Phone Subscriber Number Group Number Insured Name Patient Relationship to Insured Coverage Start Date Coverage End Date [facility] [address] [address] [place] [address] [id number] ABELARDO CASANOVA Self - patient is the insured [employer] [place] [address] [address] [place] [address] [id number] ABELARDO CASANOVA Self - patient is the insured Medical (General) History Medical History History ICD Code COLONOSPY 2 YEARS AGO PFIZER COVID VACCINE VASECTOMY 20 YEARS AGO Surgical History Surgery Date(Month/Year) vasectomy 20 YEARS AGO
== END 2025-06-20 15:13 | disposition home or self-care (01) ==
LOC: HO.HMCFM 14:12
PROVIDERS: PCP Family Medicine; Visit Provider Family Medicine
DX: Z00.00 Encounter for general adult medical examination without abnormal findings (principal); E11.69 Type 2 diabetes mellitus with other specified complication; I10 Essential (primary) hypertension; E78.5 Hyperlipidemia, unspecified; R74.01 Elevation of levels of liver transaminase levels; R79.89 Other specified abnormal findings of blood chemistry; Z12.5 Encounter for screening for malignant neoplasm of prostate

== ENCOUNTER → 2025-06-20 14:11 | Outpatient (BNVA) | payer MEDICARE, SELFPAY | PROVIDERS: PCP Family Medicine; Visit Provider Family Medicine | DX: Z00.00 Encounter for general adult medical examination without abnormal findings (principal); E11.9 Type 2 diabetes mellitus without complications; I10 Essential (primary) hypertension; E78.5 Hyperlipidemia, unspecified; R74.01 Elevation of levels of liver transaminase levels; R79.89 Other specified abnormal findings of blood chemistry; E03.9 Hypothyroidism, unspecified | CPT/HCPCS: 99397 ==

== ENCOUNTER 2025-08-06 09:20 | Outpatient (REF) | payer MEDICARE, SELFPAY ==
--- OUTSIDE RECORDS SUMMARY | 2025-08-06 10:04 | XMS_ITS | Patient Health Record ---
Author Organization [employer] 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 Phone Sinan Brown Unavailable [phone] Allergies No Known Allergies Reason For Referral [...] Status Risk Notes Problem Morbid obesity (disorder) (552115520) Morbid (severe) obesity due to excess calories (E66.01) Active confirmed BMI over 35 with Comorbidities (Hypertension) Problem Essential hypertension (76073270) Essential (primary) hypertension (I10) Active confirmed On Lisinopril Problem Prediabetes (737908677) Prediabetes (R73.03) Active confirmed Problem Hyperlipidemia (55912899) Hyperlipidemia (E78.5) Active confirmed Will refer to healthy heart Problem Psoriatic arthritis (623264271) Psoriatic arthritis (L40.50) Active confirmed From Progress Note 06/23/2021, On Calcipotriene and Otezla Problem Counseling (865732172) Cardiac risk counseling (Z71.89) Active confirmed Problem Chronic sinusitis (05753951) Sinus infection (J32.9) Active confirmed Problem Benign prostatic hypertrophy (306506764) BPH (N40.0) Active confirmed Problem Coronary artery disease (28524346) Coronary artery disease (I25.10) Active confirmed Plan [...] Insured Coverage Start Date Coverage End Date [facility] [address] [address] [place] [address] [phone] [id number] ABELARDO CASANOVA Self - patient is the insured [employer] [place] [address] [address] [place] [address] [id number] ABELARDO CASANOVA Self - patient is the insured Medical (General) History Medical History History ICD Code COLONOSPY 2 YEARS AGO PFIZER COVID VACCINE VASECTOMY 20 YEARS AGO Surgical History Surgery Date(Month/Year) vasectomy 20 YEARS AGO
[2025-08-06 12:05] LABS: Alanine Aminotransferase 28 U/L (0-40); Albumin Level 4.3 g/dL (3.5-5.0); Alkaline Phosphatase 34 U/L (39-117); Anion Gap 12 (12-20); Aspartate Amino Transferase 28 U/L (5-37); Blood Urea Nitrogen 13 mg/dL (9-16); Calcium 9.4 mg/dL (8.4-10.2); Carbon Dioxide 31 mmol/L (22-29); Chloride 106 mmol/L (96-108); Estimated Glomerular Filt Rate > 60; Potassium 4.7 mmol/L (3.3-5.1); Sodium 144 mmol/L (135-145); Total Protein 6.7 g/dL (6.5-8.0)
[2025-08-06 12:12] LABS: Free T4 (Free Thyroxine) 0.99 ng/dL (0.71-1.85); Thyroid Stimulating Hormone 0.73 uIU/mL (0.32-4.0)
== END 2025-08-06 09:21 ==
LOC: HO.WFDLDS 09:20
PROVIDERS: Visit Provider Family Medicine
DX: R79.89 Other specified abnormal findings of blood chemistry (principal); E03.9 Hypothyroidism, unspecified; R74.01 Elevation of levels of liver transaminase levels
CPT/HCPCS: 36415; 80053; 83520; 84439; 84443; 84445; 84480; 86376